=== PATIENT | female | born 1970 | race Two or more races ===

== ENCOUNTER → 2017-02-18 | Outpatient (CLI) | payer BC ==
[~2017-02-18] MED LIST: IOHEXOL 240 MG/ML 50ML VIAL. PO ONE; IOHEXOL 300 MG/ML 100ML VIAL. IV ONE; METF500T4 PO
--- NOTE | 2017-02-18 15:54 | KCIC ---
Indication: Right-sided abdominal pain. Technique: Axial images and coronal and sagittal reformatted images are provided. Oral contrast and 100 mL of intravenous Omnipaque 300 was administered without complication. No comparison is available. One or more of the following individualized dose reduction techniques were utilized for this examination: 1. Automated exposure control 2. Adjustment of the mA and/or kV according to patient size 3. Use of iterative reconstruction technique Findings: There is dependent atelectasis. There is no pleural effusion. The heart is not enlarged. There is mild fatty infiltration of the liver. Gallbladder is absent. Spleen is not enlarged. The pancreas and the right adrenal are unremarkable. Left adrenal adenoma is a centimeter in size. Nonobstructing right renal calculus measures 9 mm. Second calculus on the right measures 3 mm. There is no renal mass. Aorta is normal caliber with atheromatous disease. There is no small bowel obstruction or mural thickening. Normal appendix is noted. There is diverticulosis in the colon without findings of a diverticulitis. There is a small fat-containing umbilical hernia. Bladder is unremarkable. Uterus is presumed surgically absent. There is no adnexal mass. There are degenerative changes in the spine. There is probably canal stenosis that is at least moderate at L4-L5 and mild at L5-S1. There appears to be an old L2 superior endplate compression fracture. IMPRESSION: 1. No acute abdominal findings. 2. Diverticulosis in the colon. 3. Nonobstructing right renal calculi. 4. Mild fatty infiltration of the liver. Electronically signed by: Jhon Salazar MD (02/18/2017 3:50 PM)
== END | disposition home or self-care (01) ==
LOC: KCIC CT 13:13
PROVIDERS: ATTEND Family Medicine
DX: R10.9 Unspecified abdominal pain (principal); I10 Essential (primary) hypertension; Z79.4 Long term (current) use of insulin
CPT/HCPCS: 74178; 82565; Q9966; Q9967

== ENCOUNTER → 2017-03-10 | Outpatient (CLI) | payer BC ==
[~2017-03-10] MED LIST changes: -IOHEXOL 240 MG/ML 50ML VIAL. PO ONE; -IOHEXOL 300 MG/ML 100ML VIAL. IV ONE
--- NOTE | 2017-03-10 12:36 | KCIC ---
EXAM: MRI thoracic spine without contrast. HISTORY: Right thoracic radiculopathy. TECHNIQUE: MRI of the thoracic spine was performed without contrast. COMPARISON: None. FINDINGS: There is a moderate left paracentral protrusion at C6-7. There is a moderate superior plate compression deformity at L2. Degenerative disc disease is moderate to severe at L4-5 and moderate at L5-S1. The alignment of the thoracic spine is normal. There are mild chronic Schmorl's nodes at the superior and inferior endplates of T12. There are no acute fractures. Degenerative disc disease is mild at T7-8. There is no abnormal cord signal. At T7-8, there is a small right paracentral protrusion. It abuts the anterior cord with mild deformity. At T9-10, there is a small left paracentral protrusion with mild narrowing of the left lateral recess. From T9 through T11, there is at least mild facet and ligamentum flavum hypertrophy. This results in mild foraminal narrowing on the left greater than right. IMPRESSION: 1. At T7-8 and T9-10, small paracentral protrusions impinge on the thecal sac slightly. There is mild deformity of the right anterior cord at T7-8. 2. Mild degenerative disc disease at T7-8. 3. Additional degenerative changes in the cervical and lumbar spine as above. There is a chronic moderate compression deformity at L2. *One or more of the following individualized dose reduction techniques were utilized for this examination: 1. Automated exposure control. 2. Adjustment of the mA and/or kV according to patient size. 3. Use of iterative reconstruction technique. Electronically signed by: Huber Elizondo MD (03/10/2017 12:33 PM) [email or web address]
== END | disposition home or self-care (01) ==
LOC: KCIC MRI 10:51
PROVIDERS: ATTEND Physical Medicine & Rehabilitation
DX: M51.14 Intervertebral disc disorders with radiculopathy, thoracic region (principal)
CPT/HCPCS: 72146

== ENCOUNTER → 2017-03-26 | Outpatient (CLI) | payer BC ==
[~2017-03-26] MED LIST changes: +ALPR0.5T PO; +CYCL5TAB PO; +ESTR0.5T PO; +FLUO20CA16 PO; +GABA-585 PO; +IOHEXOL 180 MG/ML 10 ML VIAL. ONE; +LORA5SOL7 PO; +NAPR220C4 PO; +methylPREDNISolone ACETATE 40 MG/ML VIAL. ONE; +methylPREDNISolone ACETATE 80 MG/ML VIAL. ONE
--- NOTE | 2017-03-27 01:47 | PAIN ---
DATE OF SERVICE: INITIAL CONSULTATION FOR PAIN CLINIC CHIEF COMPLAINT: Mid-upper back pain. HISTORY OF PRESENT ILLNESS: This is a 46-year-old female, who presents with a history of pain in the mid-upper back for about 2-3 months, gradually increasing, not a result of any specific injury or action that she is aware of, but it has been getting gradually worse in the middle back with radiation in the right and left thorax and rib cage to the flank into the anterior aspect. The patient reports that it is a tingling and numbness, radiating, stabbing, throbbing, aching, cramping, and wakes her from sleep at least once or twice at night, does not affect her bowel or bladder control, and only hurts when she walks occasionally. The patient reports that she has had some chiropractic treatment, which has helped decrease the pain, but is still significant. The patient had no other therapies at this time. The patient did have an MRI scan of the thoracic spine, showing T7-8 with a small right paracentral protrusion, abutting the anterior cord with mild deformity at T9-10, small left paracentral protrusion with mild narrowing of the left lateral recess. The patient reports her disability, rating from 0 to 10, 10 being the worst. It is a 2 with family and home responsibilities and recreation, 4 with social activity and occupation, 8 with sexual behavior, and 0 with self-care and life support activities. The patient has tried oxycodone, also Aleve and Flexeril - each does help by about 25-30%, but has not relieved the pain completely. The patient ____ shows no loss of motor function or other complaints. She has significant pain with flexing, extending, walking, and standing in the mid-upper back with radiation as noted. PAST MEDICAL HISTORY: Significant for type 2 diabetes - on oral medications, history of arthritis, fatty liver disease, and obesity. PREVIOUS SURGERIES: Include hysterectomy, bladder lift, cholecystectomy, bilateral foot surgery and tympanic ear tubes placed. MEDICATIONS: Include metformin, Xanax, estradiol, Claritin, Prozac, gabapentin, cyclobenzaprine, and Aleve. ALLERGIES: The patient has no known drug allergies. FAMILY HISTORY: Significant for diabetes, lung cancer, and hypertension. SOCIAL HISTORY: The patient does not drink, does not smoke or use other tobacco products. She is , lives with her spouse and lives locally in [place], [place]. REVIEW OF SYSTEMS: The patient's review of systems is positive for those items mentioned in the history of present illness. All systems are reviewed and otherwise negative. It is complete, full, and well-documented on the patient's chart. PHYSICAL EXAMINATION: VITAL SIGNS: The patient's blood pressure is 133/89, pulse 87, respirations 18, temperature 98.3 degrees Fahrenheit, height is 5 feet 6 inches, and weight is 235 pounds. GENERAL: The patient is awake, alert, oriented, and appropriate, very pleasant demeanor. HEENT: Head shows normocephalic, atraumatic. Extraocular movements are intact and symmetrical. Oral cavity, mucous membranes are moist and pink. Dentition is intact. NECK: Shows anterior throat supple without palpable lymphadenopathy noted. Swallow reflex is symmetrical. CHEST: Shows normal on inspection. Breath sounds are clear to auscultation bilaterally. HEART: Shows S1 and S2 clear. ABDOMEN: Shows obese, but soft, nontender, and nondistended. No palpable organomegaly is noted. No rebound or guarding demonstrated. BACK: The patient's back shows spine grossly midline. Slight exaggeration of thoracic kyphosis with mild flattening of lumbar lordotic curvature. With inspection, shows normal symmetrical musculature of the thoracic paraspinous muscles as well as the lumbar paraspinous muscles. With palpation shows significant tenderness in the middle upper distribution of the thoracic spine, not over the spinous processes as much, but the tenderness is diffusely in the paraspinous musculature bilaterally and equal bilaterally with significant pain. No significant radiation noted with palpation. The patient shows good rotational motion of both the thoracic spine, as well as extension and flexion without significant increase in pain as well. EXTREMITIES: Upper extremities showed deep tendon reflexes at 2+ in the biceps and triceps tendons. Motor exam is strong with end user consultant strength rated at 5/5, as is biceps and triceps flexion and equal. Peripheral pulses are 2+ in the radial distribution. No peripheral edema is noted. No clubbing, no cyanosis. Upper extremities are warm and dry to touch, equal in color and appearance. The patient shows full rotational motion of the shoulders without limitation and without exacerbation of pain. IMPRESSION: 1. This is a 46-year-old female with an approximate 2- to 3-month history of increasing pain in the middle upper back as noted. 2. MRI scan of the thoracic spine as documented. 3. Obesity. 4. Arthritis. PLAN: Options were discussed with the patient including conservative medical management, physical therapy, and interventional techniques. She would like to pursue interventional techniques. We discussed a thoracic epidural steroid injection using description as well as anatomical models to describe the procedure. Risks were then discussed including, but not limited to bleeding, infection, possibility of epidural hematoma and subsequent neurologic compromise, dural puncture, headaches, spinal cord and/or nerve damage, side effects of steroid medication, and poor results regarding pain control. The patient understands and wishes to proceed. The patient will return to clinic in approximately 2 weeks for followup, she was counseled on return appointment, activity level, and side effects to be aware of. DIAGNOSES: Thoracic radiculopathy with thoracic degenerative disk disease. PROCEDURES: Thoracic epidural steroid injection via translaminar approach at the T7-8 level using C-arm fluoroscopic guidance under sterile prep and drape using local anesthetic. MEDICATIONS INJECTED: Depo-Medrol 120 mg plus 10 mL of preservative-free normal saline and 2-mL Isovue for contrast. CONDITION AT DISCHARGE: Stable. The patient tolerated the procedure well, had no complications. SAMY HUTCHINSON MD DR: INGRID/lizbeth JOB#: [id number] / [id number]
== END | disposition home or self-care (01) ==
LOC: PNCL 09:31
PROVIDERS: ATTEND Anesthesiology
DX: M51.14 Intervertebral disc disorders with radiculopathy, thoracic region (principal); M19.90 Unspecified osteoarthritis, unspecified site; E66.9 Obesity, unspecified; Z68.42 Body mass index [BMI] 45.0-49.9, adult; E11.9 Type 2 diabetes mellitus without complications; Z90.710 Acquired absence of both cervix and uterus; Z90.49 Acquired absence of other specified parts of digestive tract; Z82.49 Family history of ischemic heart disease and other diseases of the circulatory system; Z80.1 Family history of malignant neoplasm of trachea, bronchus and lung; Z88.6 Allergy status to analgesic agent; Z88.8 Allergy status to other drugs, medicaments and biological substances
CPT/HCPCS: 62321; J1030; J1040

== ENCOUNTER → 2017-08-10 | Outpatient (CLI) | payer BC ==
[~2017-08-10] MED LIST changes: -IOHEXOL 180 MG/ML 10 ML VIAL. ONE; -methylPREDNISolone ACETATE 40 MG/ML VIAL. ONE; -methylPREDNISolone ACETATE 80 MG/ML VIAL. ONE
--- NOTE | 2017-08-11 10:53 | SLEEP ---
DATE OF STUDY: 08/10/2017 ATTENDING PHYSICIAN: Dr. Leonora Velazquez. The patient is 46 years old who weighs 227 pounds with a BMI of 38. The patient's [place] score was 11. A diagnostic sleep study was performed at [facility]. During the night study, the patient spent 424 minutes in bed and slept for 399 minutes with a sleep efficiency of 94%. Sleep latency was 4 minutes with a REM latency of 256 minutes. Overall, sleep architecture showed normal stage I sleep, increased stage II sleep, absent slow wave and normal REM sleep. During the night study, the patient had 3 obstructive apneas, 4 mixed and no central apneas. There were 68 hypopneas. The patient's apnea hypopnea index was 11 per hour, supine index 15 per hour and a REM index of 41 per hour. Review of nocturnal oximetry study revealed a mean oxygen saturation of with the lowest of 82%. 8% of the time oxygen saturation remained between 80% and 89%. EKG monitoring revealed normal sinus rhythm, average heart rate of 78 beats per minute, no sustained arrhythmias were observed. No clinically significant PLM seen. Due to low AHI, the patient did not meet the split night criteria for CPAP initiation. IMPRESSION: 1. Mild sleep apnea-hypopnea syndrome with worsening during REM sleep. Total AHI 11 per hour with a REM AHI of 41 per hour. 2. Mild nocturnal hypoxia secondary to obstructive sleep apnea. 3. No clinically significant PLMs. RECOMMENDATIONS: 1. The patient is clinically symptomatic. I would recommend treating patient's sleep apnea with either oral appliance or a trial of CPAP titration. 2. If patient undergoes CPAP titration, then the patient should be followed up in 4-6 weeks to assess compliance with CPAP and to document clinical improvement. 3. Weight loss is strongly advised. 4. Avoid ASSISTANT MANAGER TRAIN[employer] depressants. 5. Caution regarding driving until patient's hypersomnia is resolved with above recommendations. STEVEN LEONE MD DR: ALLYN/lizbeth JOB#: [id number] / [id number] LEONORA Santoro MD [facility]
== END | disposition home or self-care (01) ==
LOC: SLPLAB 18:35
PROVIDERS: ATTEND Family Medicine
DX: G47.33 Obstructive sleep apnea (adult) (pediatric) (principal); R06.83 Snoring
CPT/HCPCS: 95810

== ENCOUNTER 2017-10-26 04:18 | Inpatient (IN) | payer BC ==
[2017-10-26 06:18] LABS: ADD MAN DIFF? NO
[2017-10-26 06:32] LABS: ANION GAP 13 (6-14); BLOOD UREA NITROGEN 13 mg/dL (7-20); BUN/CREATININE RATIO 19 (6-20); CALCIUM 9.1 mg/dL (8.5-10.1); CARBON DIOXIDE 23 mmol/L (21-32); CHLORIDE 101 mmol/L (98-107); CREATININE 0.7 mg/dL (0.6-1.0); GFR 89.3; GLUCOSE 165 mg/dL (70-99); POTASSIUM 3.5 mmol/L (3.5-5.1); SODIUM 137 mmol/L (136-145)
[2017-10-26] MEDS: IV NORMAL SALINE 1000ML BAG 1,000 ML IV ×8 (06:36→17:47)
[2017-10-26] MEDS: ONDANSETRON PF 4 MG/2 ML VIAL. IV ×2 (06:36)
[2017-10-26 06:37] LABS: ALBUMIN 3.6 g/dL (3.4-5.0); ALBUMIN/GLOBULIN RATIO 0.8 (1.0-1.7); ALK PHOS 70 U/L (46-116); ALT (SGPT) 22 U/L (14-59); AST (SGOT) 18 U/L (15-37); LIPASE 100 U/L (73-393); TOTAL BILIRUBIN 0.4 mg/dL (0.2-1.0); TOTAL PROTEIN 8.4 g/dL (6.4-8.2)
[2017-10-26] MEDS: fentaNYL PF VIAL 100 MCG/2 ML VIAL IV ×22 (06:37→23:15)
[2017-10-26 06:42] LABS: BASO % 1 % (0-3); EOS # 0.1 x10^3/uL (0.0-0.7); EOS % 1 % (0-3); HEMATOCRIT 39.8 % (36.0-47.0); HEMOGLOBIN 12.9 g/dL (12.0-15.5); LYMPH # 1.4 x10^3/uL (1.0-4.8); LYMPH % 17 % (24-48); MEAN CORPUSCULAR HEMOGLOBIN 26 pg (25-35); MEAN CORPUSCULAR HGB CONC 33 g/dL (31-37); MEAN CORPUSCULAR VOLUME 79 fL (79-100); MONO # 0.6 x10^3/uL (0.0-1.1); MONO % 7 % (0-9); NEUT # 6.6 x10^3uL (1.8-7.7); NEUT % 75 % (31-73); PLATELET COUNT 284 x10^3/uL (140-400); RED BLOOD COUNT 5.06 x10^6/uL (3.50-5.40); RED CELL DISTRIBUTION WIDTH 16.2 % (11.5-14.5); WHITE BLOOD COUNT 8.8 x10^3/uL (4.0-11.0)
[2017-10-26 06:56] LABS: BILIRUBIN,URINE NEGATIVE (NEG); CLARITY,URINE CLOUDY; COLOR,URINE AMBER; GLUCOSE,URINE NEGATIVE (NEG); NITRITE,URINE NEGATIVE (NEG); PH,URINE 7.5; PROTEIN,URINE 30 mg/dL (NEG-TRACE); SQUAMOUS EPITHELIAL CELL,UR MOD /LPF; UROBILINOGEN,URINE 0.2 mg/dL (0.2 mg/dL)
[2017-10-26 06:57] LABS: BACTERIA,URINE FEW /HPF (0-FEW); RBC,URINE TNTC /HPF (0-2)
[2017-10-26] MEDS ORDERED: CONTRAST GIVEN MC ×2 (07:30)
[2017-10-26] MEDS ORDERED: IOHEXOL 300 MG/ML 100ML VIAL. IV ×2 (07:30)
[2017-10-26] MEDS ORDERED: ONDANSETRON PF 4 MG/2 ML VIAL. IV ×4 (09:00→11:15)
[2017-10-26] MEDS ORDERED: LIDOCAINE 2% JELLY 6ML IN APPLICATOR. ×4 (10:38)
[2017-10-26] MEDS: IV RINGERS,LACTATED 1000ML 1,000 ML IV ×2 (11:03)
[2017-10-26 11:04] LABS: POC GLUCOSE 114 mg/dL (70-99)
[2017-10-26] MEDS ORDERED: fentaNYL PF VIAL 100 MCG/2 ML VIAL IV ×2 (11:15)
[2017-10-26] MEDS ORDERED: MORPHINE SULFATE 2 MG/ML DISP.SYRIN. IV ×2 (11:15)
[2017-10-26] MEDS ORDERED: LIDOCAINE 1% PF 2 ML VIAL. ID ×2 (11:15)
[2017-10-26] MEDS ORDERED: PROCHLORPERAZINE 10 MG/2 ML VIAL. IV ×2 (11:15)
[2017-10-26] MEDS ORDERED: fentaNYL PF VIAL 100 MCG/2 ML VIAL ×2 (11:26)
[2017-10-26] MEDS ORDERED: MIDAZOLAM HCL/PF 2 MG/2 ML VIAL. ×2 (11:26)
[2017-10-26] MEDS: IOHEXOL 300 MG/ML 100ML VIAL. ×2 (11:41)
[2017-10-26] MEDS ORDERED: ONDANSETRON PF 4 MG/2 ML VIAL. ×2 (11:57)
[2017-10-26] MEDS ORDERED: DEXAMETHASONE SOD PHOS 20 MG/5 ML VIAL. ×2 (11:57)
[2017-10-26] MEDS ORDERED: SEVOFLURANE 61 TO 120 MINUTES. IH ×2 (11:57)
[2017-10-26] MEDS ORDERED: PROPOFOL 20 ML IV ×2 (11:57)
[2017-10-26] MEDS ORDERED: LIDOCAINE 2% PF Vial for OR 5 ML VIAL. ×2 (11:57)
[2017-10-26] MEDS ORDERED: SEVOFLURANE 31 TO 60 MINUTES. IH ×2 (11:57)
[2017-10-26 12:17] LABS: POC GLUCOSE 97 mg/dL (70-99)
[2017-10-26 14:33] LABS: POC GLUCOSE 176 mg/dL (70-99)
[2017-10-26] MEDS: GABAPENTIN 100 MG CAPSULE. PO ×4 (15:00→21:00)
[2017-10-26] MEDS: SPIRONOLACTONE 25 MG TABLET PO ×2 (15:10)
[2017-10-26] MEDS: LISINOPRIL 5 MG TABLET. PO ×2 (15:11)
[2017-10-26] MEDS: FLUoxetine HCL 20 MG CAPSULE PO ×2 (15:11)
[2017-10-26] MEDS: metFORMIN 500 MG TABLET PO ×2 (17:00)
[2017-10-26 17:15] LABS: POC GLUCOSE 187 mg/dL (70-99)
[2017-10-26] MEDS: CIPROFLOXACIN 200MG PREMIX 100 ML IV ×4 (17:48→23:14)
[2017-10-26] MEDS: TEMAZEPAM 15 MG CAPSULE PO ×2 (20:35)
[2017-10-26] MEDS: ALPRAZolam 0.5 MG TABLET PO ×2 (20:35)
[2017-10-26] MEDS: LACTOBACILLUS RHAMNOSUS GG 1 CAPSULE. PO ×2 (21:00)
[2017-10-26 21:09] LABS: BILIRUBIN,URINE NEGATIVE (NEG); CLARITY,URINE CLEAR; COLOR,URINE YELLOW; GLUCOSE,URINE >=1000 mg/dL (NEG); NITRITE,URINE NEGATIVE (NEG); PROTEIN,URINE 30 mg/dL (NEG-TRACE)
[2017-10-26 21:15] LABS: BACTERIA,URINE FEW /HPF (0-FEW); RBC,URINE >40 /HPF (0-2); SQUAMOUS EPITHELIAL CELL,UR FEW /LPF
[2017-10-27] MEDS: FLUoxetine HCL 20 MG CAPSULE PO ×4 (00:24→21:08)
[2017-10-27] MEDS: fentaNYL PF VIAL 100 MCG/2 ML VIAL IV ×10 (01:02→23:27)
[2017-10-27] MEDS: DOCUSATE SODIUM 100 MG CAPSULE. PO ×4 (01:08→10:34)
[2017-10-27] MEDS: oxyCODONE/APAP 7.5/325 1 TAB TABLET PO ×6 (03:14→18:39)
[2017-10-27 03:33] LABS: ADD MAN DIFF? NO
[2017-10-27 03:38] LABS: BASO % 0 % (0-3); EOS % 0 % (0-3); HEMOGLOBIN 11.6 g/dL (12.0-15.5); LYMPH # 1.7 x10^3/uL (1.0-4.8); LYMPH % 15 % (24-48); MEAN CORPUSCULAR HEMOGLOBIN 26 pg (25-35); MEAN CORPUSCULAR HGB CONC 32 g/dL (31-37); MEAN CORPUSCULAR VOLUME 79 fL (79-100); MONO # 0.5 x10^3/uL (0.0-1.1); MONO % 4 % (0-9); NEUT # 9.2 x10^3uL (1.8-7.7); NEUT % 81 % (31-73); PLATELET COUNT 269 x10^3/uL (140-400); RED BLOOD COUNT 4.54 x10^6/uL (3.50-5.40); RED CELL DISTRIBUTION WIDTH 16.3 % (11.5-14.5); WHITE BLOOD COUNT 11.4 x10^3/uL (4.0-11.0)
[2017-10-27 03:58] LABS: ALBUMIN 3.2 g/dL (3.4-5.0); ALBUMIN/GLOBULIN RATIO 0.8 (1.0-1.7); ALK PHOS 62 U/L (46-116); ALT (SGPT) 19 U/L (14-59); ANION GAP 10 (6-14); AST (SGOT) 15 U/L (15-37); BLOOD UREA NITROGEN 10 mg/dL (7-20); BUN/CREATININE RATIO 17 (6-20); CALCIUM 8.6 mg/dL (8.5-10.1); CARBON DIOXIDE 25 mmol/L (21-32); CHLORIDE 102 mmol/L (98-107); CREATININE 0.6 mg/dL (0.6-1.0); GFR 106.7; GLUCOSE 151 mg/dL (70-99); POTASSIUM 4.1 mmol/L (3.5-5.1); SODIUM 137 mmol/L (136-145); TOTAL BILIRUBIN 0.4 mg/dL (0.2-1.0); TOTAL PROTEIN 7.2 g/dL (6.4-8.2)
[2017-10-27 06:32] LABS: POC GLUCOSE 154 mg/dL (70-99)
[2017-10-27 07:49] LABS: POC GLUCOSE 135 mg/dL (70-99)
[2017-10-27] MEDS: metFORMIN 500 MG TABLET PO ×4 (08:00→17:00)
[2017-10-27] MEDS ORDERED: FLUOXETINE HCL PO ×2 (08:00)
[2017-10-27] MEDS ORDERED: ALPRAZolam 0.5 MG TABLET PO ×2 (09:00)
[2017-10-27] MEDS ORDERED: LISINOPRIL 5 MG TABLET. PO ×2 (09:00)
[2017-10-27] MEDS: ALPRAZolam 0.5 MG TABLET PO ×4 (09:29→21:26)
[2017-10-27] MEDS: LACTOBACILLUS RHAMNOSUS GG 1 CAPSULE. PO ×4 (09:29→21:07)
[2017-10-27] MEDS: GABAPENTIN 100 MG CAPSULE. PO ×6 (09:29→21:07)
[2017-10-27] MEDS: SPIRONOLACTONE 25 MG TABLET PO ×2 (09:29)
[2017-10-27] MEDS: CIPROFLOXACIN 200MG PREMIX 100 ML IV ×4 (09:30→21:11)
[2017-10-27] MEDS: IV NORMAL SALINE 1000ML BAG 1,000 ML IV ×2 (09:31)
[2017-10-27] MEDS: PHENAZOPYRIDINE 200 MG TABLET. PO ×2 (10:34)
[2017-10-27 11:02] LABS: POC GLUCOSE 208 mg/dL (70-99)
[2017-10-27] MEDS: KETOROLAC TROMETHAMINE 10 MG TABLET PO ×4 (11:54→21:07)
[2017-10-27 16:37] LABS: POC GLUCOSE 131 mg/dL (70-99)
[2017-10-27] MEDS: TEMAZEPAM 15 MG CAPSULE PO ×2 (21:07)
[2017-10-27 22:14] LABS: POC GLUCOSE 179 mg/dL (70-99)
[2017-10-28] MEDS: oxyCODONE/APAP 7.5/325 1 TAB TABLET PO ×6 (01:30→14:38)
[2017-10-28] MEDS: KETOROLAC TROMETHAMINE 10 MG TABLET PO ×4 (04:52→12:41)
[2017-10-28] MEDS: PHENAZOPYRIDINE 200 MG TABLET. PO ×2 (05:31)
[2017-10-28] MEDS: DOCUSATE SODIUM 100 MG CAPSULE. PO ×2 (05:39)
[2017-10-28] MEDS: ALPRAZolam 0.5 MG TABLET PO ×2 (05:39)
[2017-10-28] MEDS: fentaNYL PF VIAL 100 MCG/2 ML VIAL IV ×4 (05:41→09:30)
[2017-10-28 07:40] LABS: POC GLUCOSE 108 mg/dL (70-99)
[2017-10-28] MEDS: metFORMIN 500 MG TABLET PO ×2 (08:22)
[2017-10-28] MEDS: LACTOBACILLUS RHAMNOSUS GG 1 CAPSULE. PO ×2 (09:21)
[2017-10-28] MEDS: GABAPENTIN 100 MG CAPSULE. PO ×4 (09:21→14:38)
[2017-10-28] MEDS: SPIRONOLACTONE 25 MG TABLET PO ×2 (09:21)
[2017-10-28] MEDS: CIPROFLOXACIN 200MG PREMIX 100 ML IV ×2 (09:22)
[2017-10-28 11:38] LABS: POC GLUCOSE 149 mg/dL (70-99)
[2017-10-28] MEDS ORDERED: metFORMIN 500 MG TABLET PO ×2 (17:00)
== END 2017-10-28 15:30 | disposition home or self-care (01) | DRG 694 ==
LOC: ER 04:18 → 5 SOUTH 08:49
PROC: BT1D1ZZ Fluoroscopy of Right Kidney, Ureter and Bladder using Low Osmolar Contrast (ICD-10-PCS; principal; 2017-10-26 11:25)
PROC: 0T768DZ Dilation of Right Ureter with Intraluminal Device, Via Natural or Artificial Opening Endoscopic (ICD-10-PCS; 2017-10-26 11:25)
PROC: 5A09357 Assistance with Respiratory Ventilation, Less than 24 Consecutive Hours, Continuous Positive Airway Pressure (ICD-10-PCS; 2017-10-26 11:25)
DX: N13.2 Hydronephrosis with renal and ureteral calculous obstruction (principal); E88.81 Metabolic syndrome and other insulin resistance; R65.10 Systemic inflammatory response syndrome (SIRS) of non-infectious origin without acute organ dysfunction; N39.0 Urinary tract infection, site not specified; E66.9 Obesity, unspecified; E11.9 Type 2 diabetes mellitus without complications; E78.5 Hyperlipidemia, unspecified; I10 Essential (primary) hypertension; N83.201 Unspecified ovarian cyst, right side; K57.30 Diverticulosis of large intestine without perforation or abscess without bleeding; F32.9 Major depressive disorder, single episode, unspecified; F41.9 Anxiety disorder, unspecified; Z68.36 Body mass index [BMI] 36.0-36.9, adult; Z82.49 Family history of ischemic heart disease and other diseases of the circulatory system; Z87.442 Personal history of urinary calculi; Z90.49 Acquired absence of other specified parts of digestive tract; Z90.710 Acquired absence of both cervix and uterus; Z88.5 Allergy status to narcotic agent
CPT/HCPCS: 36415; 74018; 74177; 74420; 80053; 81001; 82962; 83690; 85025; 87086; 96361; 96374; 96375; 99285; 99285-25; C1769; C2617; J0690; J0744; J1100; J2250; J2405; J2704; J3010; J7030; J7120; Q9967

== ENCOUNTER → 2018-08-12 | Outpatient (CLI) | payer BC ==
[2017-10-28 14:50] VITALS: BP 124/70
[~2018-08-12] MED LIST changes: +ALPR0.5T6 PO; +BIFI1CAP PO; +FLUO40CA2 PO; +LISI-338 PO; +METF500T16 PO; -METF500T4 PO; +MULT-160 PO; +OXYC1TAB19 PO; +SPIR50TA PO; +SUMA100T4 PO; +TEMA30CA PO
--- NOTE | 2018-08-12 15:14 | RAD ---
MR of the left knee Indication: Left lateral knee pain over the last few years. Pain and swelling. Comparison: None are available. Technique: The standard multiplanar sequences are obtained. FINDINGS: Artifact: Mild motion degradation. Medial meniscus: Mild signal within the posterior horn, likely exaggerated by the motion. No definite surfacing of the signal. Lateral meniscus: Intact. Anterior cruciate ligament: Intact. Posterior cruciate ligament: Intact Medial collateral ligament: Intact. Lateral structures: * Iliotibial band: Intact. * Lateral collateral ligament: Intact. * Biceps femoris tendon: Intact * Popliteus tendon attachment: Intact Extensive mechanism: * Patellar tendon: Intact * Quadriceps tendon: Intact * Retinacular structures: Intact Fluid: Moderate joint effusion. Trace Tolbert's cyst. Intra-articular bodies: 8 mm osteochondral body posterior to the posterior horn of the lateral meniscus. There may be an additional adjacent smaller nodule. There is also a smaller loose body posterior to the posterior horn the medial meniscus. Joint compartments * patellofemoral joint: Primary osteoarthritis, severe chondromalacia at the lateral aspect with subchondral exposure and small cysts. * medial compartment: Minimal degenerative spurring * lateral compartment: Mild degenerative spurring. Bones: No significant lesion or acute fracture. Soft tissue: Unremarkable Impression: 1. Signal within the medial meniscus, likely accentuated by the motion, no definite tear. 2. Primary osteoarthritis. 3. At least one osteochondral loose body posterior to the posterior horn of the lateral meniscus measures 8 mm. There is a smaller loose body posterior to the posterior horn the medial meniscus. Electronically signed by: Zoltan Ashraf MD (08/12/2018 3:10 PM) [email or web address]
--- NOTE | 2018-08-15 13:53 | RAD ---
DATE: August 12, 2018 EXAM: DIGITAL SCREEN BILAT W/CAD HISTORY: Screening study. COMPARISON: 2015 and 2017 This study was interpreted with the benefit of Computerized Aided Detection (CAD). FINDINGS: Breast Density: HETERO The breast parenchyma is heterogenously dense, which could reduce sensitivity of mammography. Breast parenchyma level C.. There are no dominant suspicious masses, suspicious microcalcifications or evidence of architectural distortion. IMPRESSION: No mammographic indicators for malignancy. BI-RADS CATEGORY: 1 NEGATIVE RECOMMENDED FOLLOW-UP: 12M 12 MONTH FOLLOW-UP PQRS compliance statement: Patient information was entered into a reminder system with a target due date August 13, 2019 for the next mammogram. Mammography is a sensitive method for finding small breast cancers, but it does not detect them all and is not a substitute for careful clinical examination. A negative mammogram does not negate a clinically suspicious finding and should not result in delay in biopsying a clinically suspicious abnormality. "Our facility is accredited by the [employer] Mammography Program." The patient's breast density may affect the ability of mammography to detect breast cancer. There are 4 categories of breast density, A, B, C and D. Breast density A means that most of the breast tissue is replaced with adipose tissue and therefore is not dense. Breast density B means that the breast tissue is mildly dense and scattered. Breast density C means that the breast tissue is heterogeneously dense. Breast density D means that the breast tissue is very dense. Breast densities especially C and D may decrease the sensitivity of mammography to detect breast cancer. Therefore, the patient may benefit from 3-D breast mammography (3D breast tomography) as a part of their screening mammogram. Insurance may or may not pay for this additional imaging. The patient's breast density based on today's mammogram is category C.
== END | disposition home or self-care (01) ==
LOC: MAMMO 13:57
PROVIDERS: ATTEND Family Medicine
DX: Z12.31 Encounter for screening mammogram for malignant neoplasm of breast (principal); M17.12 Unilateral primary osteoarthritis, left knee; M23.42 Loose body in knee, left knee; M22.42 Chondromalacia patellae, left knee; M25.462 Effusion, left knee; M25.862 Other specified joint disorders, left knee
CPT/HCPCS: 73721; 77067

== ENCOUNTER → 2019-05-16 | Outpatient (CLI) | payer BC ==
[2017-10-28 14:50] VITALS: BP 124/70
[~2019-05-16] MED LIST changes: +GABA600T7 PO; +IOHEXOL 180 MG/ML 10 ML VIAL. ONE; +methylPREDNISolone ACETATE 40 MG/ML VIAL. ONE; +methylPREDNISolone ACETATE 80 MG/ML VIAL. ONE
--- NOTE | 2019-05-16 10:17 | PAIN ---
DATE OF SERVICE: 05/16/2019 INITIAL CONSULTATION FOR PAIN CLINIC CHIEF COMPLAINT: Low back and left lower extremity pain. HISTORY OF PRESENT ILLNESS: This is a 48-year-old female, who presents with history of pain in the low back and left lower extremity. For about 2 years on and off, she has had multiple exercise therapies, chiropractic treatment and physical therapy; over the last 3 months especially, lumbar pump. Also, doing exercises on her own. The patient is taking gabapentin, hydrocodone and Flexeril, all of which do decrease the pain moderately, but the pain is in the low back, radiating to the posterior gluteus, posterolateral thigh, lateral anterior thigh, anterior medial thigh, medial knee on the left side. The patient reports it is tingling and numbness and radiation changes during the day, worse with activity, constant with weightbearing; burning, cramping, aching and cold as well. The patient reports she jumped out of a bed of a box truck about 2 years ago and feels that it was when this all started. The patient reports it wakes her from sleep at least 2 times or more at night. It does not affect her ability to walk, but does cause it to be more difficult and fatigues easily on the left leg. Has not had any falling or difficulty with control of the left leg, but significant fatigability with ambulation. The patient reports no bowel or bladder incontinence. The patient rates her disability rating from 0-10, 10 being the worst, is a 4 with family home responsibilities, recreation, social activity, 5 with occupation, 10 with sexual behavior, 6 with self-care and 5 with life support activities. The patient did have MRI scan of the lumbar spine showing disk space narrowing at L4-L5 with diffuse disk bulging and bulging annulus with mild bilateral foraminal stenosis. L5-S1 shows a focal disk protrusion centrally with bilateral foraminal stenosis as well. The patient reports no other complaints at this time. PAST MEDICAL HISTORY: Significant for diabetes type 2, hypertension, depression, anxiety, dizziness, headaches. PREVIOUS SURGERIES: Include lap tamar, sling mesh placement, hysterectomy partial, previous and kidney stents. CURRENT MEDICATIONS: Include Xanax, Prozac, cyclobenzaprine, Aleve, gabapentin, metformin, Percocet, multivitamins and Aldactone. ALLERGIES: The patient has no known drug allergies. FAMILY HISTORY: Significant for heart disease, cancers and diabetes. SOCIAL HISTORY: The patient does not drink alcohol, does not smoke, does not use any illegal, illicit or recreational drugs. Is , lives with her spouse. Lives locally in [place], [place]. Has 1 child, living at home. 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 REVIEW OF SYSTEMS: The patient's review of systems is positive for those items as mentioned in history of present illness. All systems reviewed and otherwise negative. It is complete, full and well documented on the patient's chart. PHYSICAL EXAMINATION: VITAL SIGNS: The patient's blood pressure is 135/87, pulse 73, respirations are 18, temperature is 98.4 degrees Fahrenheit, she is 5 foot 6 inches, weight is 236 pounds. GENERAL: The patient is awake, alert, oriented and appropriate. She has very pleasant demeanor. HEENT: Head is normocephalic, atraumatic. Extraocular movements are intact and symmetrical. Oral cavity: Mucous membranes are moist and pink. Dentition is intact. NECK: Shows anterior throat supple without palpable lymphadenopathy noted. Swallow reflex symmetrical. CHEST: Shows normal on inspection. Breath sounds clear to auscultation bilaterally. HEART: Shows S1, S2 clear. No murmurs auscultated. ABDOMEN: Soft, nontender, nondistended. No palpable organomegaly is noted. No rebound or guarding demonstrated. BACK: Shows spine grossly in the midline. Normal-appearing thoracic kyphosis and minor flattening of the lumbar lordotic curvature. Lumbar paraspinous muscle shows symmetrical on inspection. On palpation, she has some moderate tenderness diffusely bilaterally, but only diffusely without specific radiation. EXTREMITIES: The patient's lower extremities show deep tendon reflexes at 2+ in the patellar and 1+ tendo-calcaneus tendons. Motor exam is approximately 4 on a scale of 5 with dorsiflexion, extension, quadriceps and hamstring flexion on the left and 5/5 on the right. Peripheral pulses are 1+ posterior tibia. No peripheral edema is noted bilaterally. The patient's straight leg raise noted to be mildly positive on the left at about 45 degrees, but is decreased with knee flexion; the right side is negative. Gaenslen and Wilber maneuvers are negative bilaterally. The patient is able to stand, stand on her toes without difficulty or loss of balance, walks with a normal-appearing gait, not using any assistive devices to ambulate. SKIN: Shows warm and dry, good turgor. No edema. No sores, rashes or bruising throughout. IMPRESSION: 1. This is a 48-year-old female with approximate 2-year history of increasing pain of low back and left lower extremity in a radicular fashion. 2. MRI scan of lumbar spine as noted. 3. Hypertension. 4. Diabetes. PLAN: Options were discussed with the patient, including conservative medical management, physical therapy and interventional techniques. She would like to pursue interventional techniques. We discussed a lumbar epidural steroid injection using description as well as anatomical models to describe the procedure. Risks were then discussed including but not limited to bleeding, infection, possibility of epidural hematoma, subsequent neurological compromise, dural puncture, headaches, spinal cord and/or nerve damage, side effects of steroid medication and poor results regarding pain control. The patient understands and wished to proceed. The patient will return to the clinic in approximately 2 weeks for followup. She was counseled on return appointment, activity level and side effects to be aware of. DIAGNOSES: Lumbar radiculopathy with lumbar degenerative disk disease and lumbar spinal stenosis. PROCEDURE: Lumbar epidural steroid injection, translaminar approach at L4-L5 level using C-arm fluoroscopic guidance under sterile prep and drape using local anesthetic. MEDICATION INJECTED: A total of 120 mg Depo-Medrol plus 10 mL of preservative-free normal saline and 2 mL of contrast. CONDITION AT DISCHARGE: Stable. The patient tolerated procedure well. Had no complications. The patient had initial cervical spinal fluid spread with contrast. Our initial placement needle was redirected with good epidural only, spread on second attempt. The patient did have mild headache after the procedure, which resolved with time and supine position. SAMY HUTCHINSON MD DR: INGRID/lizbeth JOB#: [id number] / [id number]
== END ==
LOC: PNCL 07:51
PROVIDERS: ATTEND Anesthesiology
DX: M51.16 Intervertebral disc disorders with radiculopathy, lumbar region (principal); M48.061 Spinal stenosis, lumbar region without neurogenic claudication; E11.9 Type 2 diabetes mellitus without complications; I10 Essential (primary) hypertension; F32.9 Major depressive disorder, single episode, unspecified; F41.9 Anxiety disorder, unspecified; Z90.49 Acquired absence of other specified parts of digestive tract; Z90.710 Acquired absence of both cervix and uterus; Z98.890 Other specified postprocedural states; Z79.84 Long term (current) use of oral hypoglycemic drugs
CPT/HCPCS: 62323; J1030; J1040; Q9965

== ENCOUNTER → 2019-06-29 | Outpatient (CLI) | payer BC ==
[2017-10-28 14:50] VITALS: BP 124/70
[~2019-06-29] MED LIST changes: -IOHEXOL 180 MG/ML 10 ML VIAL. ONE; +METF10007 PO; -methylPREDNISolone ACETATE 40 MG/ML VIAL. ONE; -methylPREDNISolone ACETATE 80 MG/ML VIAL. ONE
--- NOTE | 2019-06-29 13:44 | KCIC ---
Right lower extremity venous duplex study 06/29/2019 1:41 PM Clinical History: Pain Technique: Using a combination of real time ultrasound imaging and color-flow and pulse Doppler imaging techniques, including spectral analysis, graded compression and augmentation, duplex evaluation of the deep venous system of the right lower extremity was performed. Multiple images were obtained. Findings: There is no sonographic evidence of deep venous thrombosis involving the visualized deep venous structures of the right lower extremity Impression: No evidence of deep venous thrombosis involving the right lower extremity Electronically signed by: Seymour Escobar MD (06/29/2019 1:41 PM) [id number]
== END | disposition home or self-care (01) ==
LOC: KCIC US 13:02
PROVIDERS: ATTEND Nurse Practitioner Family
DX: M79.661 Pain in right lower leg (principal)
CPT/HCPCS: 93971

== ENCOUNTER → 2019-06-29 | Outpatient (CLI) | payer BC ==
[2017-10-28 14:50] VITALS: BP 124/70
[~2019-06-29] MED LIST changes: +IOHEXOL 180 MG/ML 10 ML VIAL. ONE; +methylPREDNISolone ACETATE 40 MG/ML VIAL. ONE; +methylPREDNISolone ACETATE 80 MG/ML VIAL. ONE
--- NOTE | 2019-06-29 09:12 | PAIN ---
DATE OF SERVICE: 06/29/2019 PROGRESS NOTE FOR PAIN CLINIC DIAGNOSES: Lumbar radiculopathy with lumbar degenerative disk disease and lumbar spinal stenosis. HISTORY OF PRESENT ILLNESS: The patient, a 48-year-old female, returns for followup status post lumbar epidural steroid injection x 1. The patient reports about 45% improvement in the low back and left lower extremity pain. The patient reports some pain in the right calf, however, recently. Other than that, she had a bruise there, but is not sure if she hit it on anything, that has been getting better over the past 2 weeks or so. The patient reports her pain in her back and her left leg, is still persistent in the posterior gluteus, posterior thigh, lateral thigh, anterior thigh, medial thigh, and posterior calf on the left as well. The patient describes aching type, tingling, burning, cramping, radiating, becoming more constant, on and off in intensity, 6 on a scale of 10 at its worst over the past week, 5 on average, 5 at its least and is a 5 today. The patient reports sleeping well at night, does not awaken her from sleep, better with sitting or lying down, worse with standing, walking, changing positions. The patient reports no new motor or sensory deficits, no bowel or bladder incontinence or other complaints. The patient did have a spinal headache after her last injection, but that resolved after about 10 days and she reports she has been feeling fine since then. PHYSICAL EXAMINATION: VITAL SIGNS: The patient's blood pressure 131/87, pulse 80, respirations 16, temperature is 98.1 degrees Fahrenheit, weight is 231 pounds. GENERAL: The patient is awake, alert, oriented, appropriate, very pleasant demeanor. HEENT: Shows normocephalic, atraumatic. Extraocular movements are intact and symmetrical. Oral cavity: Mucous membranes moist and pink. Dentition is intact. NECK: Shows anterior throat supple without palpable lymphadenopathy noted. Swallow reflex symmetrical. CHEST: Shows normal on inspection. Normal breath sounds clear to auscultation bilaterally. HEART: Shows S1, S2 clear. ABDOMEN: Soft, nontender, nondistended. No palpable organomegaly is noted. No rebound or guarding demonstrated. BACK: Shows spine grossly in the midline. Normal-appearing thoracic kyphosis and minor flattening of lumbar lordotic curvature. Lumbar paraspinous muscle shows symmetrical on inspection, with palpation shows some moderate tenderness in the low lumbar distribution, but only diffusely bilaterally. EXTREMITIES: Lower extremities show deep tendon reflexes 2+ in the patellar, 1+ in tendo-calcaneus tendons. Motor exam is 5/5 on the right and 4/5 on the left with dorsiflexion, extension, quadriceps, and hamstring flexion. The patient does have some mild tenderness with palpation over the right calf with negative Homans sign; however, peripheral pulses are 2+ posterior tibial bilaterally. No peripheral edema is noted. Options were discussed with the patient. The patient's old chart was reviewed as her current medication regimen updated. Current review of systems updated today as well. We will proceed with a second in a series of lumbar epidural steroid injection today with fluoroscopic guidance. Risks were again discussed, including but not limited to bleeding, infection, possibility of epidural hematoma and subsequent neurologic compromise, dural puncture, headaches, spinal cord and/or nerve damage, side effects of steroid medication and poor results regarding pain control. The patient understands and wished to proceed. The patient will return to the clinic in approximately 2 weeks for followup. She was counseled on return appointment, activity level and side effects to be aware of. DIAGNOSES: Lumbar radiculopathy with lumbar degenerative disk disease and lumbar spinal stenosis. PROCEDURE: Lumbar epidural steroid injection, translaminar approach, L5-S1 level using C-arm fluoroscopic guidance under sterile prep and drape using local anesthetic. MEDICATION INJECTED: A total of 120 mg Depo-Medrol plus 10 mL of preservative-free normal saline and 2 mL of contrast. CONDITION AT DISCHARGE: Stable. The patient tolerated the procedure well, had no complications. SAMY HUTCHINSON MD DR: INGRID/lizbeth JOB#: [id number] / [id number]
== END ==
LOC: PNCL 07:26
PROVIDERS: ATTEND Anesthesiology
DX: M51.16 Intervertebral disc disorders with radiculopathy, lumbar region (principal); M48.061 Spinal stenosis, lumbar region without neurogenic claudication
CPT/HCPCS: 62323; J1030; J1040; Q9965

== ENCOUNTER → 2019-08-17 | Outpatient (CLI) | payer BC ==
[2017-10-28 14:50] VITALS: BP 124/70
--- NOTE | 2019-08-17 10:27 | PAIN ---
DATE OF SERVICE: 08/17/2019 DIAGNOSES: Lumbar radiculopathy with lumbar degenerative disk disease and lumbar spinal stenosis. HISTORY OF PRESENT ILLNESS: The patient is a 48-year-old female who returns for followup status post lumbar epidural steroid injections x 2, most recently seen on 06/29/2019. The patient did very well with about 75% improvement for the first 5 weeks. The patient reports the pain is returning now over the last week or 2, which has increased in the low back and left lower extremity; however, her leg is doing much better. She complains of pain in the low back and left side, worse with walking, standing, changing positions. Initially, she was doing much better with distance walking, doing work activities, household activities, sleeping better. Still not awakening her from sleep at night, but ____ back fairly frequently. The patient reports over the past week, her pain has been a 4 on a scale of 10 at its worst, 3 on average, 3 at its least and is a 3 today. The patient reports it is aching, tingling, burning, cramping, sometimes constant. No new motor or sensory deficits, no new bowel or bladder incontinence. PHYSICAL EXAMINATION: VITAL SIGNS: The patient's blood pressure 139/94, pulse 88, respirations 16, temperature 98.2 degrees Fahrenheit, weight is 234 pounds. GENERAL: The patient is awake, alert, oriented, appropriate, very pleasant demeanor. HEENT: Shows normocephalic, atraumatic. Extraocular movements are intact and symmetrical. Oral cavity: Mucous membranes moist and pink. Dentition is intact. NECK: Shows anterior throat supple without palpable lymphadenopathy noted. Swallow reflex symmetrical. CHEST: Shows normal on inspection. Breath sounds clear to auscultation bilaterally. HEART: Shows S1, S2 clear. No murmurs auscultated. ABDOMEN: Soft, obese, nontender, nondistended. No palpable organomegaly is noted. No rebound or guarding demonstrated. BACK: Shows spine grossly in the midline. Normal appearing thoracic kyphosis and some minor flattening of lumbar lordotic curvature. Lumbar paraspinous muscle shows symmetrical on inspection; on palpation, shows some moderate tenderness diffusely, but only diffusely without significant radiation. The patient has full rotational motion of lumbar spine, both laterally as well as extension and flexion without difficulty. EXTREMITIES: Lower extremities show deep tendon reflexes 2+ in the patellar, 1+ tendo-calcaneus tendons. Motor exam is strong with 5/5 dorsiflexion, extension on the right and 4/5 on the left. Peripheral pulses are 1+ posterior tibia. No peripheral edema is noted bilaterally. Options were discussed with the patient. The patient's old chart was reviewed as her current medication regimen updated. Current review of systems updated today as well. We will proceed with third in the series of lumbar epidural steroid injection today with fluoroscopic guidance. Risks were again discussed including, but not limited to bleeding, infection, possibility of epidural hematoma, subsequent neurological compromise, dural puncture, headaches, spinal cord and/or nerve damage, side effects of steroid medication and poor results regarding pain control. The patient understands and wished to proceed. The patient will return to clinic in approximately 2 weeks for followup. She was counseled on return appointment, activity level and side effects to be aware of. DIAGNOSES: Lumbar radiculopathy with lumbar degenerative disk disease, lumbar spinal stenosis. PROCEDURE: Lumbar epidural steroid injection, translaminar approach at L5-S1 level using C-arm fluoroscopic guidance under sterile prep and drape using local anesthetic. MEDICATION INJECTED: A total of 120 mg Depo-Medrol plus 10 mL of preservative-free normal saline and 2 mL of contrast. CONDITION AT DISCHARGE: Stable. The patient tolerated the procedure well, had no complications. SAMY HUTCHINSON MD DR: INGRID/lizbeth JOB#: [id number] / [id number]
== END ==
LOC: PNCL 07:52
PROVIDERS: ATTEND Anesthesiology
DX: M51.16 Intervertebral disc disorders with radiculopathy, lumbar region (principal); M48.061 Spinal stenosis, lumbar region without neurogenic claudication
CPT/HCPCS: 62323; J1030; J1040; Q9965

== ENCOUNTER → 2020-01-11 | Outpatient (CLI) | payer BC ==
[2017-10-28 14:50] VITALS: BP 124/70
[~2020-01-11] MED LIST changes: +DICL75TA PO
--- NOTE | 2020-01-11 10:26 | PAIN ---
DATE OF SERVICE: 01/11/2020 PROGRESS NOTE FOR PAIN CLINIC DIAGNOSIS: Lumbar radiculopathy with lumbar degenerative disk disease and lumbar spinal stenosis. HISTORY OF PRESENT ILLNESS: The patient is a 49-year-old female who returns for followup status post lumbar epidural steroid injections x 3, most recently seen in 08/2019. The patient did very well with about 75% improvement overall. The patient reports still about a 45% improvement today with the pain in the low back and left lower extremity returning, more noticeable with walking and standing. The patient reports initially she was doing great with walking, doing work activities, household activities, traveling with greater ease and comfort. The patient reports it is beginning to awaken her from sleep again, but only about every 6 hours and when she is on her left side. The patient reports her pain now is a 6 on a scale of 10 at its worst, 4 on average, 2 at its least and is a 2 today. The patient reports it is dull and tight, shooting across the low back into the posterior gluteus on the left, posterior calf and thigh occasionally, but mostly in the back and left hip. The patient reports it is a tingling radiating pain and is becoming more constant, on and off in intensity, however, with ambulation, PHYSICAL EXAMINATION: VITAL SIGNS: The patient's blood pressure is 154/67, pulse 76, respirations 18, temperature is 98.2 degrees Fahrenheit. Height is 5 feet 6 inches. Weight is 232 pounds. GENERAL: The patient is awake, alert, oriented, appropriate, very pleasant demeanor. HEENT: Shows normocephalic, atraumatic. Extraocular movements are intact and symmetrical. Oral cavity shows mucous membranes moist and pink. Dentition is intact. NECK: Shows anterior throat supple without palpable lymphadenopathy noted. Swallow reflex symmetrical. CHEST: Shows normal on inspection. Breath sounds are clear bilaterally. HEART: Shows S1 and S2 clear. ABDOMEN: Obese, soft, nontender, nondistended. BACK: Shows spine grossly in the midline, normal appearing thoracic kyphosis and lumbar lordotic curvature. Lumbar paraspinous muscle shows symmetrical on inspection, on palpation shows some moderate tenderness diffusely throughout the upper, middle and lower distributions of paraspinous muscles, but without radiation and without trigger points. No tenderness over the spinous processes, sacrum or sacroiliac regions. The patient has good rotational motion of lumbar spine, both laterally as well as extension and flexion without significant pain reported. EXTREMITIES: Lower extremities showed deep tendon reflexes 2+ in the patellar, 1+ tendo-calcaneus tendons. Motor exam is strong with 5/5 dorsiflexion, extension, quadriceps and hamstring flexion. Peripheral pulses are 1+ to posterior tibia. No peripheral edema bilaterally. Options were discussed with the patient. The patient's old chart was reviewed as her current medication regimen updated. Current review of systems updated today as well. We will proceed with a lumbar epidural steroid injection today with fluoroscopic guidance with the first in this series. Risks were again discussed including, but not limited to bleeding, infection, possibility of epidural hematoma, subsequent neurological compromise, dural puncture, headaches, spinal cord and/or nerve damage, side effects of steroid medication and poor results regarding pain control. The patient understands and wished to proceed. The patient will return to clinic in approximately 2 weeks for followup. She was counseled on return appointment, activity level and side effects to be aware of. DIAGNOSIS: Lumbar radiculopathy with lumbar degenerative disk disease and lumbar spinal stenosis. PROCEDURE: Lumbar epidural steroid injection, translaminar approach at the L5-S1 level using C-arm fluoroscopic guidance under sterile prep and drape using local anesthetic. MEDICATIONS INJECTED: A total of 120 mg Depo-Medrol plus 10 mL preservative-free normal saline and 2 mL of contrast. CONDITION AT DISCHARGE: Stable. The patient tolerated procedure well and had no complications. SAMY HUTCHINSON MD DR: INGRID/lizbeth JOB#: [id number] / [id number]
== END ==
LOC: PNCL 09:24
PROVIDERS: ATTEND Anesthesiology
DX: M51.16 Intervertebral disc disorders with radiculopathy, lumbar region (principal); M48.061 Spinal stenosis, lumbar region without neurogenic claudication
CPT/HCPCS: 62323; J1030; J1040; Q9965

== ENCOUNTER 2020-06-17 19:27 | Observation (INO) | payer BC ==
[~2020-06-17] VITALS: Ht 167.6 cm; Wt 101.7 kg
[~2020-06-17 19:27] MED LIST changes: -IOHEXOL 180 MG/ML 10 ML VIAL. ONE; -methylPREDNISolone ACETATE 40 MG/ML VIAL. ONE; -methylPREDNISolone ACETATE 80 MG/ML VIAL. ONE
[2020-06-17] MEDS ORDERED: ASPIRIN CHEWABLE 81 MG TABLET. PO ONE (19:45)
[2020-06-17 19:49] LABS: BASO # 0.1 x10^3/uL (0.0-0.2); BASO % 1 % (0-3); EOS # 0.5 x10^3/uL (0.0-0.7); EOS % 7 % (0-3); HEMATOCRIT 36.9 % (36.0-47.0); HEMOGLOBIN 12.1 g/dL (12.0-15.5); LYMPH # 3.3 x10^3/uL (1.0-4.8); LYMPH % 48 % (24-48); MEAN CORPUSCULAR HEMOGLOBIN 26 pg (25-35); MEAN CORPUSCULAR HGB CONC 33 g/dL (31-37); MEAN CORPUSCULAR VOLUME 78 fL (79-100); MONO # 0.6 x10^3/uL (0.0-1.1); MONO % 8 % (0-9); NEUT # 2.4 x10^3/uL (1.8-7.7); NEUT % 35 % (31-73); PLATELET COUNT 295 x10^3/uL (140-400); RED BLOOD COUNT 4.76 x10^6/uL (3.50-5.40); RED CELL DISTRIBUTION WIDTH 14.6 % (11.5-14.5); WHITE BLOOD COUNT 6.9 x10^3/uL (4.0-11.0)
[2020-06-17 19:59] LABS: PROTHROMBIN TIME PATIENT 12.8 SEC (11.7-14.0)
[2020-06-17 20:21] LABS: CALCIUM 9.1 mg/dL (8.5-10.1); CREATININE 0.7 mg/dL (0.6-1.0); GFR 88.6; POTASSIUM 3.6 mmol/L (3.5-5.1)
[2020-06-17 20:26] LABS: ALBUMIN 3.7 g/dL (3.4-5.0); ALBUMIN/GLOBULIN RATIO 1.1 (1.0-1.7); MAGNESIUM 1.9 mg/dL (1.8-2.4); TOTAL BILIRUBIN 0.3 mg/dL (0.2-1.0); TOTAL PROTEIN 7.1 g/dL (6.4-8.2)
--- NOTE | 2020-06-17 20:29 | RAD ---
PORTABLE CHEST 1V History: Reason: chest pain on inspiration / Spl. Instructions: / History: Comparison: None. Findings: No consolidation or pleural effusion. Normal heart size. No pneumothorax. Impression: 1. No acute cardiopulmonary process. Electronically signed by: Boby Manning DO (06/17/2020 8:25 PM) [facility]
[2020-06-17 20:42] LABS: BILIRUBIN,URINE NEGATIVE (NEG); CLARITY,URINE CLEAR; COLOR,URINE YELLOW; NITRITE,URINE NEGATIVE (NEG); PH,URINE 5.5 (<5.0-8.0); PROTEIN,URINE NEGATIVE (NEG-TRACE); UROBILINOGEN,URINE 0.2 mg/dL (0.2 mg/dL)
[2020-06-17] MEDS ORDERED: IOHEXOL 350 MG/ML 100 ML VIAL. IV ONE (20:45)
[2020-06-17] MEDS ORDERED: CONTRAST GIVEN. MC PRN (20:45)
[2020-06-17 20:49] LABS: BACTERIA,URINE FEW /HPF (0-FEW); RBC,URINE 0 /HPF (0-2)
--- NOTE | 2020-06-17 21:16 | RAD ---
CT ANGIOGRAPHY CHEST History: Chest pain. Shortness of breath. Technique: CT of the chest was performed with intravenous contrast. PE protocol. Maximum intensity projection coronal and sagittal reconstructions were performed. Exposure: One or more of the following individualized dose reduction techniques were utilized for this examination: 1. Automated exposure control 2. Adjustment of the mA and/or kV according to patient size 3. Use of iterative reconstruction technique. Comparison: None Findings: Chest: No consolidation or pleural effusion. Normal heart size. No pulmonary embolism. No pneumothorax. No pathologic lymphadenopathy. 3 mm right middle lobe pulmonary nodule (series 3 image 62). 3 mm left lower lobe pulmonary nodule (image 82). Upper abdomen: Prior cholecystectomy. Left adrenal nodule measures 1.2 x 1.0 cm. Bones: No pathologic osseous lesions. Impression: 1. No acute intrathoracic pathology. No pulmonary embolism. 2. Small pulmonary nodules. Recommend one-year follow-up if high risk. Electronically signed by: Boby Manning DO (06/17/2020 9:13 PM) [facility]
--- NOTE | 2020-06-17 21:21 | PHYS DOC ---
Past Medical History Past Medical History: Anxiety, Depression, Diabetes-Type II, Hypertension Past Surgical History: Cholecystectomy, , Hysterectomy Smoking Status: Former Smoker Alcohol Use: None Drug Use: None General Adult EDM: Chief Complaint: CHEST PAIN-CARDIAC NATURE HPI: HPI: Patient is a 49 year old female who presented to ER today for evaluation of chest pain, upper back pain, left arm pain started several hours ago. Patient has history of diabetic and hypertension. She denies a history of coronary disease. Patient denies any cough or fever. Patient denies being exposed to anybody who had COVID-19 recently. Review of Systems: Review of Systems: Constitutional: Denies fever or chills. [] Eyes: Denies change in visual acuity. [] HENT: Denies nasal congestion or sore throat. [] Respiratory: Denies cough , POSITIVE FOR shortness of breath. [] Cardiovascular: Positive chest pain, no edema GI: Denies abdominal pain, nausea, vomiting, bloody stools or diarrhea. [] : Denies dysuria. [] Musculoskeletal: POSITIVE FOR UPPER BACK PAIN AND LEFT ARM PAIN Integument: Denies rash. [] Neurologic: Denies headache, focal weakness or sensory changes. [] Endocrine: Denies polyuria or polydipsia. [] Lymphatic: Denies swollen glands. [] Psychiatric: Denies depression or anxiety. [] Heart Score: HEART Score for Chest Pain: HEART Score for Chest Pain Response (Comments) Value History Moderately Suspicious 1 ECG Normal 0 Age >45 - < 65 1 Risk Factors >3 Risk Factors or Hx CAD 2 Troponin < Normal Limit 0 Total 4 Risk Factors: Risk Factors: DM, Current or recent (<one month) smoker, HTN, HLP, family history of CAD, obesity. Risk Scores: Score 0 - 3: 2.5% MACE over next 6 weeks - Discharge Home Score 4 - 6: 20.3% MACE over next 6 weeks - Admit for Clinical Observation Score 7 - 10: 72.7% MACE over next 6 weeks - Early Invasive Strategies Current Medications: Current Medications Medications (Trade) Dose Ordered Sig/Axel Start Time Stop Time Status Last Admin Dose Admin Aspirin (Aspirin Chewable) 324 mg 1X ONCE 06/17/20 19:45 06/17/20 19:46 DC 06/17/20 19:49 324 MG Info (CONTRAST GIVEN -- Rx MONITORING) 1 each PRN DAILY PRN 06/17/20 20:45 06/19/20 20:44 Iohexol (Omnipaque 350 Mg/ml) 100 ml 1X ONCE 06/17/20 20:45 06/17/20 20:46 DC 06/17/20 20:51 100 ML Allergies: Allergies: Allergies Coded Allergies Type Severity Reaction Last Updated Verified codeine Allergy Intermediate Unknown 01/10/20 Yes hydrocodone Allergy Intermediate Unknown 01/10/20 Yes Physical Exam: PE: Constitutional: Well developed, well nourished, no acute distress, non-toxic appearance. [] HENT: Normocephalic, atraumatic, bilateral external ears normal, oropharynx moist, no oral exudates, nose normal. [] Eyes: PERRLA, EOMI, conjunctiva normal, no discharge. [] Neck: Normal range of motion, no tenderness, supple, no stridor. [] Cardiovascular:Heart rate regular rhythm, no murmur [] Lungs & Thorax: Bilateral breath sounds clear to auscultation [] Abdomen: Bowel sounds normal, soft, no tenderness, no masses, no pulsatile masses. [] Skin: Warm, dry, no erythema, no rash. [] Back: No tenderness, no CVA tenderness. [] Extremities: No tenderness, no cyanosis, no clubbing, ROM intact, no edema. [] Neurologic: Alert and oriented X 3, normal motor function, normal sensory function, no focal deficits noted. [] Psychologic: Affect normal, judgement normal, mood normal. [] Current Patient Data: Labs: Laboratory Tests Test 06/17/20 19:35 06/17/20 20:05 06/17/20 20:30 White Blood Count 6.9 x10^3/uL (4.0-11.0) Red Blood Count 4.76 x10^6/uL (3.50-5.40) Hemoglobin 12.1 g/dL (12.0-15.5) Hematocrit 36.9 % (36.0-47.0) Mean Corpuscular Volume 78 fL (79-100) L Mean Corpuscular Hemoglobin 26 pg (25-35) Mean Corpuscular Hemoglobin Concent 33 g/dL (31-37) Red Cell Distribution Width 14.6 % (11.5-14.5) H Platelet Count 295 x10^3/uL (140-400) Neutrophils (%) (Auto) 35 % (31-73) Lymphocytes (%) (Auto) 48 % (24-48) Monocytes (%) (Auto) 8 % (0-9) Eosinophils (%) (Auto) 7 % (0-3) H Basophils (%) (Auto) 1 % (0-3) Neutrophils # (Auto) 2.4 x10^3/uL (1.8-7.7) Lymphocytes # (Auto) 3.3 x10^3/uL (1.0-4.8) Monocytes # (Auto) 0.6 x10^3/uL (0.0-1.1) Eosinophils # (Auto) 0.5 x10^3/uL (0.0-0.7) Basophils # (Auto) 0.1 x10^3/uL (0.0-0.2) Prothrombin Time 12.8 SEC (11.7-14.0) Prothrombin Time INR 1.0 (0.8-1.1) Activated Partial Thromboplast Time 25 SEC (24-38) Sodium Level 140 mmol/L (136-145) Potassium Level 3.6 mmol/L (3.5-5.1) Chloride Level 104 mmol/L (98-107) Carbon Dioxide Level 24 mmol/L (21-32) Anion Gap 12 (6-14) Blood Urea Nitrogen 14 mg/dL (7-20) Creatinine 0.7 mg/dL (0.6-1.0) Estimated GFR (Cockcroft-Gault) 88.6 BUN/Creatinine Ratio 20 (6-20) Glucose Level 202 mg/dL (70-99) H Calcium Level 9.1 mg/dL (8.5-10.1) Magnesium Level 1.9 mg/dL (1.8-2.4) Total Bilirubin 0.3 mg/dL (0.2-1.0) Aspartate Amino Transferase (AST) 23 U/L (15-37) Alanine Aminotransferase (ALT) 42 U/L (14-59) Alkaline Phosphatase 80 U/L (46-116) Troponin I Quantitative < 0.017 ng/mL (0.000-0.055) NY-Naf-O-Type Natriuretic Peptide 202 pg/mL (0-124) H Total Protein 7.1 g/dL (6.4-8.2) Albumin 3.7 g/dL (3.4-5.0) Albumin/Globulin Ratio 1.1 (1.0-1.7) Lipase 91 U/L (73-393) Urine Collection Type Unknown Urine Color Yellow Urine Clarity Clear Urine pH 5.5 (<5.0-8.0) Urine Specific [place] <=1.005 (1.000-1.030) Urine Protein Negative mg/dL (NEG-TRACE) Urine Glucose (UA) Negative mg/dL (NEG) Urine Ketones (Stick) Negative mg/dL (NEG) Urine Blood Negative (NEG) Urine Nitrite Negative (NEG) Urine Bilirubin Negative (NEG) Urine Urobilinogen Dipstick 0.2 mg/dL (0.2 mg/dL) Urine Leukocyte Esterase Trace (NEG) Urine RBC 0 /HPF (0-2) Urine WBC 1-4 /HPF (0-4) Urine Squamous Epithelial Cells Few /LPF Urine Bacteria Few /HPF (0-FEW) Urine Mucus Slight /LPF Laboratory Tests 06/17/20 19:35 Laboratory Tests 06/17/20 20:05 Vital Signs: Vital Signs Date Time Temp Pulse Resp B/P (MAP) Pulse Ox O2 Delivery O2 Flow Rate FiO2 06/17/20 20:11 62 149/82 (104) 97 Room Air 06/17/20 19:30 98.7 20 98.7 EKG: EKG: EKG was done at 1905, heart rate of 68 bpm, normal sinus rhythm, no ST segment elevation. Radiology/Procedures: Radiology/Procedures: [][facility] [address] [place] [address] IMAGING REPORT Signed PATIENT: LORRIE BUNN MACCOUNT: [id number] : 1970 LOCATION: ER AGE: 49 SEX: F EXAM STATUS: REG ER ORD. PHYSICIAN: CAROLINE AVALOS DO REASON: CHEST PAIN, SOA PROCEDURE: CT ANGIOGRAPHY CHEST CT ANGIOGRAPHY CHEST History: Chest pain. Shortness of breath. Technique: CT of the chest was performed with intravenous contrast. PE protocol. Maximum intensity projection coronal and sagittal reconstructions were performed. Exposure: One or more of the following individualized dose reduction techniques were utilized for this examination: 1. Automated exposure control 2. Adjustment of the mA and/or kV according to patient size 3. Use of iterative reconstruction technique. Comparison: None Findings: Chest: No consolidation or pleural effusion. Normal heart size. No pulmonary embolism. No pneumothorax. No pathologic lymphadenopathy. 3 mm right middle lobe pulmonary nodule (series 3 image 62). 3 mm left lower lobe pulmonary nodule (image 82). Upper abdomen: Prior cholecystectomy. Left adrenal nodule measures 1.2 x 1.0 cm. Bones: No pathologic osseous lesions. Impression: 1. No acute intrathoracic pathology. No pulmonary embolism. 2. Small pulmonary nodules. Recommend one-year follow-up if high risk. Electronically signed by: Boby Manning DO (06/17/2020 9:13 PM) IRISKINJAL DICTATED and SIGNED BY: BOBY MANNING DO DATE: 06/17/202112 [facility] [address] [place], [place] [id number] IMAGING REPORT Signed PATIENT: LORRIE BUNN MACCOUNT: [id number] : 1970 LOCATION: ER AGE: 49 SEX: F EXAM STATUS: REG ER ORD. PHYSICIAN: CAROLINE AVALOS DO REASON: chest pain on inspiration PROCEDURE: PORTABLE CHEST 1V PORTABLE CHEST 1V History: Reason: chest pain on inspiration / Spl. Instructions: / History: Comparison: None. Findings: No consolidation or pleural effusion. Normal heart size. No pneumothorax. Impression: 1. No acute cardiopulmonary process. Electronically signed by: Boby Manning DO (06/17/2020 8:25 PM) IRISKINJAL DICTATED and SIGNED BY: BOBY MANNING DO DATE: 06/17/202024 Course & Med Decision Making: Course & Med Decision Making Pertinent Labs and Imaging studies reviewed. (See chart for details) Patient is a 49-year-old female with history of hypertension diabetic obese, presented to ER with chest pain, lab work EKG CTs of her chest did not show acute problem. Due to her risk factors, patient will be admitted to hospital for further evaluation and treatment. Dragtahir Disclaimer: Dragtahir Disclaimer: This electronic medical record was generated, in whole or in part, using a voice recognition dictation system. Departure Departure Impression: Primary Impression: Chest pain Disposition: 09 ADMITTED INPT THIS HOSP Admitting Physician: JUDSON (Dr. Patel Frias) Condition: STABLE Referrals: LEONORA DHILLON MD (PCP) CAROLINE AVALOS DO Jun 17, 2020 21:21
[2020-06-17] MEDS ORDERED: ONDANSETRON PF 4 MG/2 ML VIAL. IVP PRN (22:15)
[2020-06-17] MEDS ORDERED: ACETAMINOPHEN 325 MG TABLET. PO PRN (22:15)
[2020-06-17] MEDS ORDERED: fentaNYL PF VIAL 100 MCG/2 ML VIAL IVP PRN (22:15)
[2020-06-17] MEDS ORDERED: MAGNESIUM HYDROXIDE 2,400 MG/30 ML ORAL.SUSP. PO PRN (22:15)
[2020-06-17] MEDS ORDERED: ZOLPIDEM 5 MG TABLET. PO PRN (22:15)
[2020-06-17] MEDS ORDERED: MAG HYDROX/ALUMINUM HYD/SIMETH 30 ML ORAL.SUSP PO PRN (22:15)
[2020-06-17] MEDS ORDERED: BISACODYL 10 MG SUPP.RECT. PR PRN (22:15)
[2020-06-17] MEDS ORDERED: IBUPROFEN 400 MG TABLET. PO PRN (22:15)
[2020-06-17] MEDS ORDERED: CALCIUM CARBONATE 500 MG TAB.CHEW PO PRN (22:15)
[2020-06-17] MEDS ORDERED: MORPHINE SULFATE 2 MG/ML VIAL. IV PRN (22:15)
[2020-06-17] MEDS ORDERED: ACETAMINOPHEN 500 MG TABLET PO ONE (22:30)
[2020-06-17] MEDS ORDERED: KETOROLAC 15 MG/ML VIAL. IVP ONE (23:00)
[2020-06-17] MEDS ORDERED: ENOXAPARIN 40 MG/0.4 ML SYRINGE. SQ SCH (23:00)
[2020-06-18 01:34] VITALS: BP 144/77
[2020-06-18] MEDS: MORPHINE SULFATE 2 MG/ML VIAL. IV PRN ×3 (01:34→06:21)
[2020-06-18] MEDS ORDERED: TIZA4TAB2 PO (02:15)
[2020-06-18] MEDS ORDERED: HYDR-2761 PO (02:15)
[2020-06-18] MEDS ORDERED: TEMA30CA PO (02:15)
[2020-06-18] MEDS ORDERED: SUMA100T3 PO (02:15)
[2020-06-18] MEDS ORDERED: CINN500C2 PO (02:15)
[2020-06-18] MEDS ORDERED: FLUO40CA2 PO (02:15)
[2020-06-18] MEDS ORDERED: IBUP-577 PO (02:15)
[2020-06-18] MEDS: tiZANidine 4 MG TABLET. PO SCH ×2 (03:14→12:11)
[2020-06-18 03:41] VITALS: BP 121/66
--- NOTE | 2020-06-18 06:12 | EKG ---
[facility] [address] [place] [address] Test Date: 2020-06-17 Test Time: 19:35:16 Pat Name: LORRIE BUNN Department: Room: Gender: F Pmp: : 1970 Requested By: CAROLINE AVALOS Order Number: [id number] Reading MD: Measurements Intervals Stow Rate: 68 P: 0 NE: 174 QRS: 9 QRSD: 94 T: 11 QT: 398 QTc: 423 Interpretive Statements SINUS RHYTHM NORMAL ECG RI6.02 No previous ECG available for comparison
[2020-06-18 07:00] VITALS: BP 102/65
[2020-06-18] MEDS ORDERED: LOSA25TA12 PO (07:00)
[2020-06-18] MEDS ORDERED: tiZANidine 4 MG TABLET. PO PRN (08:00)
[2020-06-18] MEDS ORDERED: HYDROcodone/APAP 5/325MG 1 TAB TABLET PO PRN (08:00)
[2020-06-18] MEDS ORDERED: ALPRAZolam 0.5 MG TABLET PO PRN (08:00)
[2020-06-18] MEDS ORDERED: FLUoxetine HCL 20 MG CAPSULE PO SCH (09:00)
[2020-06-18] MEDS ORDERED: FLU VACC QS 2020-21(6MOS+)/PF 0.5 ML SYRINGE. VAX IM ONE (09:00)
[2020-06-18] MEDS ORDERED: LOSARTAN POTASSIUM 25 MG TABLET. PO SCH (09:00)
[2020-06-18 11:00] VITALS: BP 126/77
--- NOTE | 2020-06-18 11:19 | PDOC2 ---
DEBI PIZARRO CANDLE WRAPPER 06/18/20 1119: CARDIAC CONSULT DATE OF CONSULT Date of Consult DATE: 06/18/20 TIME: 11:15 REASON FOR CONSULT Reason for Consult: Chest pain REFERRING PHYSICIAN Referring Physician: Yamileth SOURCE Source: Chart review, Patient HISTORY OF PRESENT ILLNESS HISTORY OF PRESENT ILLNESS This is a pleasant 49 yo female admitted for complains of chest pain. Reports this occurred yesterday like a toddler on her mid chest. She checked her BP at that time as she was also having throbbing CONROY without visual or auditory disturbances but started around her eyebrows then back to her shoulder and neck, and her BP was 225/115. She did take imitrex for her CONROY at that time thinking it was migraine. She failed to take her routine losartan for about a week and just got refilled back yesterday. She also takes ibuprofen 1800 mg at least daily for her lower back. Denies any SOA, nausea or vomiting. No abdominal pain and no heartburn. No exertional chest or dyspnea. No hx of falls, MVA or any injury, No VTE, CAD. PAST MEDICAL HISTORY Cardiovascular: HTN Pulmonary: Other (NEIL CPAP compliant) CENTRAL NERVOUS SYSTEM: Migraine Heme/Onc: No pertinent hx Hepatobiliary: No pertinent hx Psych: Anxiety Musculoskeletal: low back pain (HNP), Osteoarthritis Rheumatologic: No pertinent hx Infectious disease: No pertinent hx ENT: No pertinent hx Renal/: No pertinent hx, Other (nephrolithiasis) Endocrine: Diabetes (2) PAST SURGICAL HISTORY Past Surgical History: Cholecystectomy, , Hysterectomy, Other (open renal stone removal) FAMILY HISTORY Family History: Hypertension (sister) SOCIAL HISTORY Smoke: Quit ALCOHOL: none Drugs: None Lives: with Family CURRENT MEDICATIONS CURRENT MEDICATIONS Current Medications Medications (Trade) Dose Ordered Sig/Axel Route PRN Reason Start Time Stop Time Status Last Admin Dose Admin Aspirin (Aspirin Chewable) 324 mg 1X ONCE PO 06/17/20 19:45 06/17/20 19:46 DC 06/17/20 19:49 Iohexol (Omnipaque 350 Mg/ml) 100 ml 1X ONCE IV 06/17/20 20:45 06/17/20 20:46 DC 06/17/20 20:51 Acetaminophen (Tylenol) 1,000 mg 1X ONCE PO 06/17/20 22:30 06/17/20 22:31 DC 06/17/20 22:13 Ondansetron HCl (Zofran) 4 mg PRN Q6HRS PRN IVP NAUSEA/VOMITING 1ST CHOICE 06/17/20 22:15 06/18/20 00:22 Morphine Sulfate (Morphine Sulfate) 2 mg PRN Q1HR PRN IV SEVERE PAIN 7-10 06/17/20 22:15 06/18/20 06:21 Enoxaparin Sodium (Lovenox 40mg Syringe) 40 mg Q24H SQ 06/17/20 23:00 06/18/20 00:25 Ketorolac Tromethamine (Toradol 15mg Vial) 15 mg 1X ONCE IVP 06/17/20 23:00 06/17/20 23:01 DC 06/17/20 22:37 Tizanidine HCl (Zanaflex) 2 mg TID PO 06/18/20 03:00 06/18/20 03:14 Acetaminophen/ Hydrocodone Bitart (Lortab 5/325) 1 tab PRN Q6HRS PRN PO PAIN 06/18/20 08:00 06/18/20 09:17 Fluoxetine HCl (PROzac) 40 mg DAILY PO 06/18/20 09:00 06/18/20 09:18 ALLERGIES ALLERGIES: Coded Allergies: codeine (Verified Allergy, Intermediate, 06/17/20) hydrocodone (Verified Allergy, Intermediate, 06/17/20) ROS Review of System 14 point ROS evaluated with pertinent positives noted per HPI PHYSICAL EXAM General: Alert, Oriented X3, Cooperative, No acute distress HEENT: Atraumatic, Mucous membr. moist/pink Lungs: Clear to auscultation, Normal air movement Heart: Regular rate (SR), Normal S1, Normal S2, No murmurs Abdomen: Soft, No tenderness Extremities: No cyanosis, No edema Skin: No breakdown, No significant lesion Neuro: Normal speech, Sensation intact Psych/Mental Status: Mental status NL, Mood NL MUSCULOSKELETAL: Osteoarthritic changes both hands VITALS/I&O VITALS/I&O: Vital Signs Date Time Temp Pulse Resp B/P (MAP) Pulse Ox O2 Delivery O2 Flow Rate FiO2 06/18/20 07:00 97.9 60 16 102/65 (77) 94 Room Air 97.9 I & O 06/17/20 06/17/20 06/18/20 15:00 23:00 07:00 Intake Total 0 ml Balance 0 ml LABS Lab: Laboratory Tests Test 06/17/20 19:35 06/17/20 20:05 06/17/20 20:30 06/18/20 01:35 White Blood Count 6.9 x10^3/uL (4.0-11.0) Red Blood Count 4.76 x10^6/uL (3.50-5.40) Hemoglobin 12.1 g/dL (12.0-15.5) Hematocrit 36.9 % (36.0-47.0) Mean Corpuscular Volume 78 fL (79-100) L Mean Corpuscular Hemoglobin 26 pg (25-35) Mean Corpuscular Hemoglobin Concent 33 g/dL (31-37) Red Cell Distribution Width 14.6 % (11.5-14.5) H Platelet Count 295 x10^3/uL (140-400) Neutrophils (%) (Auto) 35 % (31-73) Lymphocytes (%) (Auto) 48 % (24-48) Monocytes (%) (Auto) 8 % (0-9) Eosinophils (%) (Auto) 7 % (0-3) H Basophils (%) (Auto) 1 % (0-3) Neutrophils # (Auto) 2.4 x10^3/uL (1.8-7.7) Lymphocytes # (Auto) 3.3 x10^3/uL (1.0-4.8) Monocytes # (Auto) 0.6 x10^3/uL (0.0-1.1) Eosinophils # (Auto) 0.5 x10^3/uL (0.0-0.7) Basophils # (Auto) 0.1 x10^3/uL (0.0-0.2) Prothrombin Time 12.8 SEC (11.7-14.0) Prothrombin Time INR 1.0 (0.8-1.1) Activated Partial Thromboplast Time 25 SEC (24-38) Sodium Level 140 mmol/L (136-145) Potassium Level 3.6 mmol/L (3.5-5.1) Chloride Level 104 mmol/L (98-107) Carbon Dioxide Level 24 mmol/L (21-32) Anion Gap 12 (6-14) Blood Urea Nitrogen 14 mg/dL (7-20) Creatinine 0.7 mg/dL (0.6-1.0) Estimated GFR (Cockcroft-Gault) 88.6 BUN/Creatinine Ratio 20 (6-20) Glucose Level 202 mg/dL (70-99) H Calcium Level 9.1 mg/dL (8.5-10.1) Magnesium Level 1.9 mg/dL (1.8-2.4) Total Bilirubin 0.3 mg/dL (0.2-1.0) Aspartate Amino Transferase (AST) 23 U/L (15-37) Alanine Aminotransferase (ALT) 42 U/L (14-59) Alkaline Phosphatase 80 U/L (46-116) Troponin I Quantitative < 0.017 ng/mL (0.000-0.055) < 0.017 ng/mL (0.000-0.055) IH-Tcm-J-Type Natriuretic Peptide 202 pg/mL (0-124) H Total Protein 7.1 g/dL (6.4-8.2) Albumin 3.7 g/dL (3.4-5.0) Albumin/Globulin Ratio 1.1 (1.0-1.7) Lipase 91 U/L (73-393) Urine Collection Type Unknown Urine Color Yellow Urine Clarity Clear Urine pH 5.5 (<5.0-8.0) Urine Specific Jackson <=1.005 (1.000-1.030) Urine Protein Negative mg/dL (NEG-TRACE) Urine Glucose (UA) Negative mg/dL (NEG) Urine Ketones (Stick) Negative mg/dL (NEG) Urine Blood Negative (NEG) Urine Nitrite Negative (NEG) Urine Bilirubin Negative (NEG) Urine Urobilinogen Dipstick 0.2 mg/dL (0.2 mg/dL) Urine Leukocyte Esterase Trace (NEG) Urine RBC 0 /HPF (0-2) Urine WBC 1-4 /HPF (0-4) Urine Squamous Epithelial Cells Few /LPF Urine Bacteria Few /HPF (0-FEW) Urine Mucus Slight /LPF Test 06/18/20 07:52 Glucose (Fingerstick) 136 mg/dL (70-99) H Laboratory Tests 06/17/20 19:35 Laboratory Tests 06/17/20 20:05 ASSESSMENT/PLAN ASSESSMENT/PLAN 1. Chest pain: normal EKG and trops. Discomfort possibly from uncontrolled HTN, no further recurrence 2. HTN urgency: off ARB for a week plus took her triptan due to CONROY. Now controlled 3. DM2: on metformin 4. Anxiety 5. Obesity 6. NEIL: CPAP compliant 7. Chronic high dose NSAID use due to Lumbar HNP Recommendations 1. Discussed outpt stress test and cardiac risk factors but refused at this time 2. Restart home losartan 3. Discussed compliance, reduction of NSAID use, diet modification RANULFO ANGELO MD 06/18/20 0364: CARDIAC CONSULT ASSESSMENT/PLAN ASSESSMENT/PLAN Patient seen and examined Chest pain. Resolved. No acute ischemic EKG changes. No elevation in troponin. As per discussion above we have recommended outpatient stress testing but the patient has refused at this time. Hypertensive urgency. Has been off her home medications. Medications restarted and her blood pressure is under much better control. Diabetes mellitus. Continuing home treatment. Obstructive sleep apnea. On CPAP. Discussed medications and compliance with the patient. Thank you for allowing us to participate in the care of your patient. DEBI PIZARRO APRN Jun 18, 2020 11:19 RANULFO ANGELO MD Jun 18, 2020 19:04
[2020-06-18 11:41] LABS: CHOLESTEROL/HDL RATIO 5.2
[2020-06-18] MEDS ORDERED: KETOROLAC 30 MG/ML VIAL. IVP ONE (11:45)
--- NOTE | 2020-06-18 12:36 | NUR ---
SS following up with discharge planning. SS reviewed pt chart and discussed with pt RN. Pt is from home with spouse and is currently on room air. Cardiology consulted. SS will continue to follow for discharge planning.
--- NOTE | 2020-06-18 13:00 | SSS ---
ADMIT DATE: 06/18/2020 CHIEF COMPLAINT: Chest pain. HISTORY OF PRESENT ILLNESS: The patient is a pleasant middle-aged female who presented with chest pain. She has some associated anxiety, rated her symptoms at 9/10. She was admitted overnight for observation. This morning, she was seen by Cardiology. They feel like this is probably not cardiac. I also examined the patient, she is doing well. We plan to discharge with close outpatient followup. PAST MEDICAL HISTORY: Chronic pain, migraines. ALLERGIES: PENICILLIN. FAMILY HISTORY: Diabetes. SOCIAL HISTORY: She does not drink, smoke or take drugs. She is a DOCUMENT CONTROL CLERK. MEDICATIONS: Reviewed, please refer to the MRAD. REVIEW OF SYSTEMS: GENERAL: No history of weight change, weakness or fevers. SKIN: No bruising, hair changes or rashes. EYES: No blurred, double or loss of vision. NOSE AND THROAT: No history of nosebleeds, hoarseness or sore throat. HEART: No history of palpitations, chest pain or shortness of breath on exertion. LUNGS: Denies cough, hemoptysis, wheezing or shortness of breath. GASTROINTESTINAL: Denies changes in appetite, nausea, vomiting, diarrhea or constipation. GENITOURINARY: No history of frequency, urgency, hesitancy or nocturia. NEUROLOGIC: Denies history of numbness, tingling, tremor or weakness. PSYCHIATRIC: No history of panic, anxiety or depression. ENDOCRINE: No history of heat or cold intolerance, polyuria or polydipsia. EXTREMITIES: Denies muscle weakness, joint pain, pain on walking or stiffness. PHYSICAL EXAMINATION: VITALS: Within normal limits and are stable. GENERAL: No apparent distress. Alert and oriented. HEENT: Normal cephalic atraumatic, external auditory canals are patent. Eyes: Extraocular muscles are intact, pupils are equally round and reactive to light and accommodation. MUSCULOSKELETAL: Well developed, well nourished, good range of motion. ENDOCRINE: No thyromegaly was palpated. LYMPHATICS: No cervical chain or axillary nodes were noted. HEMATOPOIETIC: No bruising. NECK: Supple, no JVD, no thyromegaly was noted. LUNGS: Clear to auscultation in all lung angela without rhonchi or wheezing. HEART: RRR, S1, S2 present. Peripheral pulses intact, no obvious murmurs were noted. ABDOMEN: Soft, nontender. Positive bowel sounds no organomegaly, normal bowel sounds. EXTREMITIES: Without any cyanosis, clubbing, or edema. Pedal pulses intact, Homans sign is negative. NEUROLOGIC: Normal speech, normal tone. A and O x 3, moves all extremities, no obvious focal deficits. PSYCHIATRIC: Normal affect, normal mood. Stable. SKIN: No ulcerations or rashes, good skin turgor, no jaundice. VASCULAR: Good capillary refill, neurovascular bundle appears to be intact. ASSESSMENT AND PLAN: Resolving chest pain, suspect hypertensive urgency. Today, her vital signs are back to normal. She is doing well. We plan to discharge. [place] DO DR: AMANDA/lizbeth JOB#: [id number] / [id number]
--- NOTE | 2020-06-18 13:09 | SSS ---
ADMIT DATE: CHIEF COMPLAINT: Chest pain. HISTORY OF PRESENT ILLNESS: The patient is a pleasant middle-aged female who presented with chest pain. She rates it 7/10. She has some associated anxiety, it was worse with moving, better with sitting still, described as very irritating. I discussed the case with ER physician. We admitted the patient overnight for observation. This morning, she is doing well. She was seen by Cardiology. We plan to discharge the patient with close outpatient followup. PAST MEDICAL HISTORY: Hypertension, hyperlipidemia, chronic pain, arthritis and headaches, polypharmacy. ALLERGIES: CODEINE AND HYDROCODONE. FAMILY HISTORY: Diabetes. SOCIAL HISTORY: She does not drink, smoke or take drugs. She is a RECORD SYSTEMS ANALYST. MEDICATIONS: Reviewed, please refer to the MRAD. REVIEW OF SYSTEMS: GENERAL: No history of weight change, weakness or fevers. SKIN: No bruising, hair changes or rashes. EYES: No blurred, double or loss of vision. NOSE AND THROAT: No history of nosebleeds, hoarseness or sore throat. HEART: No history of palpitations, chest pain or shortness of breath on exertion. LUNGS: Denies cough, hemoptysis, wheezing or shortness of breath. GASTROINTESTINAL: Denies changes in appetite, nausea, vomiting, diarrhea or constipation. GENITOURINARY: No history of frequency, urgency, hesitancy or nocturia. NEUROLOGIC: Denies history of numbness, tingling, tremor or weakness. PSYCHIATRIC: No history of panic, anxiety or depression. ENDOCRINE: No history of heat or cold intolerance, polyuria or polydipsia. EXTREMITIES: Denies muscle weakness, joint pain, pain on walking or stiffness. PHYSICAL EXAMINATION: VITALS: Within normal limits and are stable. GENERAL: No apparent distress. Alert and oriented. HEENT: Normal cephalic atraumatic, external auditory canals are patent. EYES: Extraocular muscles are intact, pupils are equally round and reactive to light and accommodation. MUSCULOSKELETAL: Well developed, well nourished, good range of motion. ENDOCRINE: No thyromegaly was palpated. LYMPHATICS: No cervical chain or axillary nodes were noted. HEMATOPOIETIC: No bruising. NECK: Supple, no JVD, no thyromegaly was noted. LUNGS: Clear to auscultation in all lung angela without rhonchi or wheezing. HEART: RRR, S1, S2 present. Peripheral pulses intact, no obvious murmurs were noted. ABDOMEN: Soft, nontender. Positive bowel sounds no organomegaly, normal bowel sounds. EXTREMITIES: Without any cyanosis, clubbing, or edema. Pedal pulses intact, Homans sign is negative. NEUROLOGIC: Normal speech, normal tone. A and O x 3, moves all extremities, no obvious focal deficits. PSYCHIATRIC: Normal affect, normal mood. Stable. SKIN: No ulcerations or rashes, good skin turgor, no jaundice. VASCULAR: Good capillary refill, neurovascular bundle appears to be intact. ASSESSMENT AND PLAN: Resolving hypertensive urgency and chest pain. Clinically, the patient is back to her baseline. We will discharge if okay with Cardiology. DISPOSITION: Home. ACTIVITY: As tolerated. DIET: Low sodium. MEDICATIONS: Please see the MRAD. I did leave a prescription for p.r.n. Toradol and told her to stop taking the ibuprofen because she is taking too much ibuprofen. TOTAL TIME: 32 minutes. SO DE LA [place] DO DR: AMANDA/lizbeth JOB#: [id number] / [id number]
--- NOTE | 2020-06-18 14:00 | NUR ---
Discharge: Teaching verbal and written. Reviewed medication, follow-up, stress test, echo, ect. Patient and verbalized understanding. All belongings with patient. Prescription for Toradol given to patient. Patient assisted off of unit via wheelchair accompanied by ROBERTO
[2020-06-18] MEDS ORDERED: TEMAZEPAM 15 MG CAPSULE PO SCH (21:00)
== END 2020-06-18 13:35 | disposition home or self-care (01) ==
LOC: ER 19:27 → ED HOLD 22:03 → 2 SOUTH 23:09
PROVIDERS: ADMIT Family Medicine; ATTEND Family Medicine
DX: R07.89 Other chest pain (principal); I16.0 Hypertensive urgency; I10 Essential (primary) hypertension; F41.9 Anxiety disorder, unspecified; E78.5 Hyperlipidemia, unspecified; E66.9 Obesity, unspecified; E11.9 Type 2 diabetes mellitus without complications; M19.90 Unspecified osteoarthritis, unspecified site; M51.26 Other intervertebral disc displacement, lumbar region; G43.909 Migraine, unspecified, not intractable, without status migrainosus; G47.33 Obstructive sleep apnea (adult) (pediatric); Z23 Encounter for immunization; Z87.891 Personal history of nicotine dependence; Z90.710 Acquired absence of both cervix and uterus; Z98.891 History of uterine scar from previous surgery; Z90.49 Acquired absence of other specified parts of digestive tract; Z79.84 Long term (current) use of oral hypoglycemic drugs; Z68.36 Body mass index [BMI] 36.0-36.9, adult
CPT/HCPCS: 36415; 71045; 71275; 80053; 80061; 81001; 82962; 83690; 83735; 83880; 84443; 84484; 85025; 85610; 85730; 87086; 90471; 90686; 93005; 96372; 96374; 96375; 96376; 99285; G0378; J1650; J1885; J2270; J2405; Q9967; G0379

== ENCOUNTER → 2021-01-02 | Outpatient (CLI) | payer MEDICAID ==
[~2021-01-02] MED LIST changes: +CINN500C2 PO; +HYDR-2761 PO; +IBUP-577 PO; -LISI-338 PO; +LISI-517 PO; +LOSA25TA4 PO; +SUMA100T3 PO; +TIZA4TAB2 PO
--- NOTE | 2021-01-02 13:57 | KCIC ---
EXAM: Right elbow, 2 views. HISTORY: Pain. COMPARISON: None. FINDINGS: 2 views of the right elbow are obtained. There is no fracture, dislocation or subluxation. There is no joint effusion. There is minimal degenerative spurring involving the proximal ulna and ra dial head. IMPRESSION: No acute osseous finding. Mild right elbow osteoarthritis. Electronically signed by: Pepper Lobato MD (01/02/2021 1:55 PM) [id number]
--- NOTE | 2021-01-02 13:58 | KCIC ---
EXAM: Right knee, 3 views. HISTORY: Pain. COMPARISON: None. FINDINGS: 3 views the right knee are obtained. There is no fracture, dislocation or subluxation. Ther e is enthesopathy along the superior patella. There is a small corticated ossicle along the superior patella. There is no significant joint effusion. There are small benign bone islands. IMPRESSION: No acute osseous finding. Electronically signed by: Pepper Lobato MD (01/02/2021 1:56 PM) [id number]
== END ==
LOC: KCIC 13:06
PROVIDERS: ATTEND Nurse Practitioner Gerontology
DX: M76.51 Patellar tendinitis, right knee (principal)
CPT/HCPCS: 73070; 73562

== ENCOUNTER → 2021-01-20 | Outpatient (CLI) | payer MEDICAID ==
[~2021-01-20] MED LIST changes: +LOSA25TA12 PO; -LOSA25TA4 PO
--- NOTE | 2021-01-20 14:25 | KCIC ---
STUDY: MRI of the right knee without contrast INDICATION: Medial right knee pain for the past 2 months. COMPARISON: 01/02/2021 radiographs. TECHNIQUE: Multiplanar MR imaging of the right knee performed without the use of intravenous or intra -articular contrast. FINDINGS: Menisci: Horizontal/oblique undersurface tear of the medial meniscus centered along the body segment but extending to the posterior body/horn junction. Background myxoid degeneration. There appears to b e a trace amount of meniscal tissue flipped downward towards the meniscotibial recess along the anter ior body, image 7 series 6 and image 12 series 8. The lateral meniscus is intact. Cruciate ligaments: Intact. Collateral ligaments: Mild reactive edema along the MCL complex. Unremarkable lateral collateral liga ments. Tendons: Intact. Cartilage: Patellofemoral: High-grade/full-thickness chondrosis involving much of the patella but most notably t he lateral facet and median ridge. Less pronounced chondrosis along the trochlea. Lateral compartment: Chondral thinning along the posterior nonweightbearing lateral femoral condyle. Medial compartment: Partial thickness chondrosis of the weightbearing medial femoral condyle and tibi al plateau. Bones: Scattered small osteophytes. Degenerative marrow edema along the peripheral lip of the medial tibial plateau. Miscellaneous: Small knee joint effusion. Tiny Tolbert's cyst. Mild scattered soft tissue edema IMPRESSION: 1. Horizontal/oblique undersurface tear of the medial meniscus body and propagating towards the post erior horn with a small amount of tissue displaced downward towards the meniscotibial recess (see guerra images). The lateral meniscus is intact as are the cruciate and collateral ligaments. 2. 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 Scattered small osteophytes. 3. Small knee joint effusion and a tiny Tolbert's cyst. Electronically signed by: LUCIA BARRIOS MD (01/20/2021 2:22 PM) [id number]
== END ==
LOC: KCIC MRI 12:22
PROVIDERS: ATTEND Physician Assistant
DX: M71.21 Synovial cyst of popliteal space [Baker], right knee (principal); M25.461 Effusion, right knee; M25.761 Osteophyte, right knee
CPT/HCPCS: 73721

== ENCOUNTER → 2021-02-18 | Outpatient (CLI) | payer MEDICAID ==
[~2021-02-18] MED LIST changes: -LOSA25TA12 PO; +LOSA25TA4 PO
[2021-02-18 09:32] LABS: BASO # 0.1 x10^3/uL (0.0-0.2); BASO % 1 % (0-3); EOS # 0.5 x10^3/uL (0.0-0.7); EOS % 8 % (0-3); HEMATOCRIT 36.1 % (36.0-47.0); HEMOGLOBIN 11.9 g/dL (12.0-15.5); LYMPH # 2.2 x10^3/uL (1.0-4.8); LYMPH % 36 % (24-48); MEAN CORPUSCULAR HEMOGLOBIN 25 pg (25-35); MEAN CORPUSCULAR HGB CONC 33 g/dL (31-37); MEAN CORPUSCULAR VOLUME 77 fL (79-100); MONO # 0.6 x10^3/uL (0.0-1.1); MONO % 9 % (0-9); NEUT # 2.9 x10^3/uL (1.8-7.7); NEUT % 47 % (31-73); PLATELET COUNT 301 x10^3/uL (140-400); RED BLOOD COUNT 4.69 x10^6/uL (3.50-5.40); RED CELL DISTRIBUTION WIDTH 15.7 % (11.5-14.5); WHITE BLOOD COUNT 6.3 x10^3/uL (4.0-11.0)
[2021-02-18 10:00] LABS: ALBUMIN/GLOBULIN RATIO 1.1 (1.0-1.7); CREATININE 0.5 mg/dL (0.6-1.0); GFR 130.1; POTASSIUM 3.9 mmol/L (3.5-5.1); TOTAL BILIRUBIN 0.5 mg/dL (0.2-1.0); TOTAL PROTEIN 7.6 g/dL (6.4-8.2)
[2021-02-18 10:01] LABS: CHOLESTEROL/HDL RATIO 4.3
[2021-02-18 20:12] LABS: CREAT RD UR 60.9 mg/dL (Not Estab.); MICROALB RD UR 7.3 ug/mL (Not Estab.)
[2021-02-19 00:08] LABS: HEMOGLOBIN A1C 7.5 % (4.8-5.6)
== END ==
LOC: LAB 08:17
PROVIDERS: ATTEND Family Medicine
DX: E11.65 Type 2 diabetes mellitus with hyperglycemia (principal); E78.2 Mixed hyperlipidemia
CPT/HCPCS: 80053; 80061; 82043; 82570; 83036; 83721; 85025

== ENCOUNTER → 2021-02-25 | Outpatient (CLI) | payer MEDICAID ==
[~2021-02-25] MED LIST changes: +ATOR10TA60 PO; +FLUT16SP NS; +HYDR-2765 PO; +LIDO700A21 TP
== END ==
LOC: LAB 09:40
PROVIDERS: ATTEND Orthopaedic Surgery
DX: S83.241D Other tear of medial meniscus, current injury, right knee, subsequent encounter (principal); Z01.812 Encounter for preprocedural laboratory examination; Z20.822 Contact with and (suspected) exposure to COVID-19; X58.XXXD Exposure to other specified factors, subsequent encounter
CPT/HCPCS: U0003

== ENCOUNTER 2021-02-28 09:05 | Day surgery (SDC) | payer MEDICAID ==
[~2021-02-28] VITALS: Ht 165.1 cm; Wt 98.0 kg
[~2021-02-28 09:05] MED LIST changes: -HYDR-2765 PO; +INSULIN LISPRO 100 UNIT/ML 3ML VIAL for OP,RR ONLY. SQ PRN; +IV RINGERS,LACTATED 1000ML 1,000 ML IV SCH; +MORPHINE SULFATE 2 MG/ML VIAL. IVP PRN; +PROCHLORPERAZINE 10 MG/2 ML VIAL. IVP PRN; +ceFAZolin 2GM PREMIX 2 GM/50 ML BAG IV ONE; +fentaNYL PF VIAL 100 MCG/2 ML VIAL IVP PRN
[2021-02-28 09:28] VITALS: BP 124/74
[2021-02-28] MEDS ORDERED: HYDR-2765 PO (09:52)
--- NOTE | 2021-02-28 09:55 | DISCH ---
DISCHARGE INSTRUCTIONS Condition on Discharge Condition on Discharge: Stable Activity After Discharge Activity Instructions for Disc: Progressive ambulation (May advance walking slowly as tolerated, fine motor use acceptable with hand such as eating writing typing as tolerated) Lifting Instructions after Dis: No heavy lifting, No pulling or pushing Diet after Discharge Diet after Discharge: Cardiac Wound Incision Care Wound/Incision Care: Ice to area for comfort, Change dressing (Remove knee dressing in 2 days may then shower), Do not change dressing (Keep dressing on wrist for protection until follow-up visit unless wet or soiled) Contacting the after DC Call your doctor for: Concerns you may have Follow-Up Follow up with: Dr. Oro or Kalina 10 days EKTA ORO MD Feb 28, 2021 09:55
[2021-02-28] MEDS ORDERED: SCOPOLAMINE 1.5MG PATCH. TD ONE (10:00)
[2021-02-28] MEDS ORDERED: BUPIVACAINE-EPI 0.5% 30 ML VIAL KIT. ONE (10:58)
[2021-02-28] MEDS ORDERED: BUPIVACAINE MPF 0.25% 30 ML VIAL. ONE (10:58)
[2021-02-28] MEDS ORDERED: BUPIVACAINE MPF 0.5% 30 ML VIAL. ONE (11:00)
[2021-02-28] MEDS ORDERED: methylPREDNISolone ACETATE 80 MG/ML VIAL. ONE (11:00)
[2021-02-28] MEDS ORDERED: SEVOFLURANE 61 TO 120 MINUTES. IH ONE (11:15)
[2021-02-28] MEDS ORDERED: PROPOFOL 10 MG/ML (20ML) VIAL. IV ONE (11:15)
[2021-02-28] MEDS ORDERED: KETOROLAC 30 MG/ML VIAL. ONE ×2 (11:15→12:33)
[2021-02-28] MEDS ORDERED: fentaNYL PF VIAL 100 MCG/2 ML VIAL ONE (11:15)
[2021-02-28] MEDS ORDERED: LIDOCAINE 2% PF 5 ML VIAL. ONE (11:15)
[2021-02-28] MEDS ORDERED: ePHEDrine PF IN SALINE 50 MG/10 ML SYRINGE. IV ONE (11:29)
[2021-02-28] MEDS ORDERED: methylPREDNISolone ACETATE 80 MG/ML VIAL. INT ART ONE (11:36)
[2021-02-28] MEDS ORDERED: methylPREDNISolone ACETATE 80 MG/ML VIAL. INJ ONE (12:00)
[2021-02-28] MEDS ORDERED: BUPIVACAINE-EPI 0.5% 30 ML VIAL KIT. INJ ONE (12:00)
[2021-02-28] MEDS ORDERED: DEXAMETHASONE SOD PHOS 4 MG/ML VIAL ONE (12:21)
[2021-02-28] MEDS ORDERED: ONDANSETRON PF 4 MG/2 ML VIAL. ONE (12:21)
[2021-02-28] MEDS ORDERED: HYDROcodone/APAP 7.5/325MG 1 TAB TABLET PO ONE (12:45)
[2021-02-28] MEDS ORDERED: HYDROmorphone 2 MG/ML VIAL ONE ×2 (12:55→13:28)
[2021-02-28] MEDS: HYDROmorphone 2 MG/ML VIAL IVP PRN ×5 (12:59→13:45)
[2021-02-28] MEDS ORDERED: PROCHLORPERAZINE 10 MG/2 ML VIAL. ONE (13:28)
[2021-02-28 13:42] VITALS: BP 135/58
--- NOTE | 2021-02-28 15:05 | PDOC4 ---
Operative Note Operative Note Date of surgery: 02/28/2021 Preoperative diagnosis: Right knee medial meniscus tear, right carpal tunnel syndrome and right elbow lateral epicondylitis Postoperative diagnosis: Same with posterior horn displaceable medial meniscus tear and moderate median nerve compression at the carpal tunnel Operative procedure: Right knee arthroscopy partial medial meniscectomy and excision medial parapatellar plica. Right carpal tunnel release. Injection right elbow extensor origin Surgeon: Shorty Anesthesia: General Estimated blood loss: 10 cc total Complications: None Operative indications: Please see my preoperative orthopedic clinic note for detailed operative indications and note that we had talked about the structure and function of the meniscus the current mechanical symptoms that she is having and the possibility of operative treatment of excising the unstable portion of the meniscus to address the mechanical symptoms. I emphasized that I cannot undo any degenerative type changes over the symptoms that go along with those and those would have to be treated symptomatically later with medications injection or other alternatives. Likewise I talked about the possibility of incomplete relief of the carpal tunnel release and the fact that we are taking pressure off the nerve and the body has to otherwise heal to the extent that is possible. We talked about the possibility of infection nerve or blood vessel damage continued pain medical or other anesthetic complications including blood clots among others all her questions were answered she wishes to proceed with surgical evaluation and treatment Operative text: Patient was identified procedure verified patient placed in the supine position on the operating table. After adequate amounts of general anesthesia were administered the right lower extremity was prepped and draped in standard sterile fashion with a thigh tourniquet. After timeout was performed patient procedure identified and verified the right lower extremity was exsanguinated by Esmarch bandage tourniquet inflated to 250 mmHg a lateral portal was established medial portal established using spinal needle localization and the knee joint was systematically examined. She was found to have a displaceable tear of the posterior horn root area of the medial meniscus which was trimmed back to stable tissue using the arthroscopic punch and shaver. ACL was probed and found to be intact. She had a medial parapatellar plica which was excised to avoid further irritation and did have patellar and trochlear chondromalacia that did not require debridement and no loose bodies in the gutters or suprapatellar pouch. The knee was drained of arthroscopic fluid portals closed with nylon suture portal and fat pad areas were injected with half percent Marcaine sterile dressings were applied. Attention was then turned to the right upper extremity as the right upper extremity was exsanguinated tourniquet inflated to 250 mmHg a longitudinal incision was made just distal to the distal wrist crease patient was returned to recovery room stable condition having tolerated procedure well EKTA PERDOMO MD Feb 28, 2021 15:05
== END 2021-02-28 14:20 | disposition home or self-care (01) ==
LOC: SURG 09:05
PROVIDERS: ATTEND Orthopaedic Surgery
DX: S83.241A Other tear of medial meniscus, current injury, right knee, initial encounter (principal); G56.01 Carpal tunnel syndrome, right upper limb; M77.11 Lateral epicondylitis, right elbow; I10 Essential (primary) hypertension; E78.00 Pure hypercholesterolemia, unspecified; E11.9 Type 2 diabetes mellitus without complications; J45.909 Unspecified asthma, uncomplicated; G47.30 Sleep apnea, unspecified; F41.9 Anxiety disorder, unspecified; F32.9 Major depressive disorder, single episode, unspecified; Z90.49 Acquired absence of other specified parts of digestive tract; Z90.710 Acquired absence of both cervix and uterus; Z98.51 Tubal ligation status; Z98.890 Other specified postprocedural states; Z79.899 Other long term (current) drug therapy; Z79.84 Long term (current) use of oral hypoglycemic drugs; Z87.891 Personal history of nicotine dependence; Z88.6 Allergy status to analgesic agent; X58.XXXA Exposure to other specified factors, initial encounter; Y93.89 Activity, other specified; Y92.89 Other specified places as the place of occurrence of the external cause; Y99.8 Other external cause status
CPT/HCPCS: 20605; 29881; 64721; 82962; A4209; A4930; A6402; J0690; J0780; J1040; J1100; J1170; J1885; J2405; J2704; J3010; J3490; A4223; A4657; A6452

== ENCOUNTER 2021-04-24 16:45 | Emergency (ER) | payer MEDICAID ==
[~2021-04-24] VITALS: Ht 167.6 cm; Wt 95.5 kg
[~2021-04-24 16:45] MED LIST changes: +HYDR-2765 PO; -INSULIN LISPRO 100 UNIT/ML 3ML VIAL for OP,RR ONLY. SQ PRN; -IV RINGERS,LACTATED 1000ML 1,000 ML IV SCH; -MORPHINE SULFATE 2 MG/ML VIAL. IVP PRN; -PROCHLORPERAZINE 10 MG/2 ML VIAL. IVP PRN; -ceFAZolin 2GM PREMIX 2 GM/50 ML BAG IV ONE; -fentaNYL PF VIAL 100 MCG/2 ML VIAL IVP PRN
[2021-04-24 17:27] LABS: BILIRUBIN,URINE NEGATIVE (NEG); CLARITY,URINE CLEAR; NITRITE,URINE NEGATIVE (NEG); PH,URINE 6.5 (<5.0-8.0); PROTEIN,URINE NEGATIVE (NEG-TRACE); UROBILINOGEN,URINE 0.2 mg/dL (0.2 mg/dL)
[2021-04-24] MEDS ORDERED: ONDANSETRON PF 4 MG/2 ML VIAL. IVP ONE (17:30)
[2021-04-24] MEDS ORDERED: TAMSULOSIN 0.4 MG CAP.ER.24H. PO ONE (17:30)
[2021-04-24] MEDS ORDERED: fentaNYL PF VIAL 100 MCG/2 ML VIAL IVP ONE (17:30)
[2021-04-24] MEDS ORDERED: IV NORMAL SALINE 1000ML BAG 1,000 ML IV ONE (17:30)
[2021-04-24 17:32] LABS: COLOR,URINE STRAW
[2021-04-24 17:34] LABS: BACTERIA,URINE MODERATE /HPF (0-FEW); RBC,URINE 0 /HPF (0-2)
[2021-04-24 17:35] LABS: WBC,URINE OCC /HPF (0-4)
[2021-04-24 17:39] LABS: BASO # 0.1 x10^3/uL (0.0-0.2); BASO % 1 % (0-3); EOS # 0.3 x10^3/uL (0.0-0.7); EOS % 4 % (0-3); HEMATOCRIT 35.8 % (36.0-47.0); HEMOGLOBIN 11.9 g/dL (12.0-15.5); LYMPH # 3.3 x10^3/uL (1.0-4.8); LYMPH % 43 % (24-48); MEAN CORPUSCULAR HEMOGLOBIN 25 pg (25-35); MEAN CORPUSCULAR HGB CONC 33 g/dL (31-37); MEAN CORPUSCULAR VOLUME 76 fL (79-100); MONO # 0.7 x10^3/uL (0.0-1.1); MONO % 9 % (0-9); NEUT # 3.2 x10^3/uL (1.8-7.7); NEUT % 43 % (31-73); PLATELET COUNT 303 x10^3/uL (140-400); RED BLOOD COUNT 4.72 x10^6/uL (3.50-5.40); RED CELL DISTRIBUTION WIDTH 15.8 % (11.5-14.5); WHITE BLOOD COUNT 7.6 x10^3/uL (4.0-11.0)
[2021-04-24 17:47] LABS: CALCIUM 9.8 mg/dL (8.5-10.1); CREATININE 0.7 mg/dL (0.6-1.0); GFR 88.2; POTASSIUM 4.9 mmol/L (3.5-5.1)
[2021-04-24 17:52] LABS: ALBUMIN 3.9 g/dL (3.4-5.0); ALBUMIN/GLOBULIN RATIO 1.1 (1.0-1.7); TOTAL BILIRUBIN 0.5 mg/dL (0.2-1.0); TOTAL PROTEIN 7.4 g/dL (6.4-8.2)
--- NOTE | 2021-04-24 18:20 | RAD ---
Exam: CT of abdomen and pelvis without contrast INDICATION: Back pain, history of stone TECHNIQUE: Sequential axial images through the abdomen and pelvis obtained without IV contrast. Sagit leighton and coronal reformatted images were reconstructed from the axial data and reviewed. Exposure: One or more of the following in the visualized dose reduction techniques were utilized for this examination: 1. Automated exposure control 2. Adjustment of the MA and/or KV according to patient size 3. Use of iterative of reconstructive technique Comparisons: 10/26/2017 FINDINGS: Heart size is normal. No pericardial effusion. There is a 5 mm nodule in the left lower lobe series 2 image 14. No pleural effusion or thickening. Evaluation solid organs is limited secondary to noncontrast technique. Liver, spleen, pancreas and adrenals are unremarkable. Gallbladder surgically absent. No perinephric inflammation or hydronephrosis. No renal or ureteral calculi are identified. Bladder is partially distended and not well evaluated. Uterus is absent. No abnormal adnexal mass. Diverticulosis noted at the descending and sigmoid colon without evidence of acute diverticulitis. Ap pendix is normal. No free intra-abdominal air or fluid. No obstruction. Abdominal aorta has a normal course and caliber. No enlarged intra-abdominal lymph nodes are identified. No suspicious osseous lesions or acute fractures. IMPRESSION: 1. Diverticulosis noted at the descending and sigmoid colon without evidence of acute diverticulitis . 2. Nonobstructing right renal calculi. No ureteral calculi or evidence for obstructive uropathy. 3. A 5 mm nodule in the left lower lobe. In a low-risk patient no further follow-up imaging is recom mended. In a high-risk patient optional one-year follow-up chest CT can BE performed. Electronically signed by: Yonis Rouse MD (04/24/2021 6:17 PM) [facility]
[2021-04-24] MEDS ORDERED: CYCL10TA2 PO (19:37)
[2021-04-24] MEDS ORDERED: HYDR-2761 PO (19:37)
--- NOTE | 2021-04-24 19:40 | PHYS DOC ---
Past Medical History Past Medical History: Anxiety, Depression, Diabetes-Type II, Hypertension Past Surgical History: Cholecystectomy, , Hysterectomy Smoking Status: Current Every Day Smoker Alcohol Use: None Drug Use: None General Adult EDM: Chief Complaint: FLANK PAIN HPI: HPI: Patient is a 50 year old female with a history of anxiety, hypertension, diabetes type 2, kidney stones, who presents the ED today complaining of 3 out of 10 left flank pain, symptoms began 2 days ago. Patient states symptoms are worse on movement. Denies any fever, nausea, vomiting. She is worried she has a kidney stone. Describes the pain as sharp. Review of Systems: Review of Systems: Constitutional: Denies fever or chills. [] Eyes: Denies change in visual acuity. [] HENT: Denies nasal congestion or sore throat. [] Respiratory: Denies cough or shortness of breath. [] Cardiovascular: Denies chest pain or edema. [] GI: Denies abdominal pain, nausea, vomiting, bloody stools or diarrhea. [] : Reports left flank pain. Denies dysuria. [] Musculoskeletal: Denies back pain Integument: Denies rash. [] Neurologic: Denies headache, focal weakness or sensory changes. [] Psychiatric: Denies depression or anxiety. [] Heart Score: C/O Chest Pain: N/A Risk Factors: Risk Factors: DM, Current or recent (<one month) smoker, HTN, HLP, family history of CAD, obesity. Risk Scores: Score 0 - 3: 2.5% MACE over next 6 weeks - Discharge Home Score 4 - 6: 20.3% MACE over next 6 weeks - Admit for Clinical Observation Score 7 - 10: 72.7% MACE over next 6 weeks - Early Invasive Strategies Current Medications: Current Medications Medications (Trade) Dose Ordered Sig/Axel Start Time Stop Time Status Last Admin Dose Admin Fentanyl Citrate (Fentanyl 2ml Vial) 50 mcg 1X ONCE 04/24/21 17:30 04/24/21 17:31 DC 04/24/21 17:43 50 MCG Ondansetron HCl (Zofran) 4 mg 1X ONCE 04/24/21 17:30 04/24/21 17:31 DC 04/24/21 17:43 4 MG Sodium Chloride 1,000 ml @ 1,000 mls/hr 1X ONCE 04/24/21 17:30 04/24/21 18:29 DC 04/24/21 17:43 1,000 MLS/HR Tamsulosin HCl (Flomax) 0.4 mg 1X ONCE 04/24/21 17:30 04/24/21 17:31 DC 04/24/21 17:43 0.4 MG Allergies: Allergies: Allergies Coded Allergies Type Severity Reaction Last Updated Verified No Known Drug Allergies 04/24/21 No Physical Exam: PE: Constitutional: Well developed, well nourished, no acute distress, non-toxic appearance. [] HENT: Normocephalic, atraumatic, bilateral external ears normal, oropharynx moist, no oral exudates, nose normal. [] Eyes: PERRLA, EOMI, conjunctiva normal, no discharge. [] Neck: Normal range of motion, no tenderness, supple, no stridor. [] Cardiovascular:Heart rate regular rhythm, no murmur [] Lungs & Thorax: Bilateral breath sounds clear to auscultation [] Abdomen: Bowel sounds normal, soft, no tenderness, no masses, no pulsatile masses. [] Skin: Warm, dry, no erythema, no rash. [] Back: No tenderness, slight left CVA tenderness. [] Extremities: No tenderness, no cyanosis, no clubbing, ROM intact, no edema. [] Neurologic: Alert and oriented X 3, normal motor function, normal sensory function, no focal deficits noted. [] Psychologic: Affect normal, judgement normal, mood normal. [] Current Patient Data: Labs: Laboratory Tests Test 04/24/21 17:19 04/24/21 17:33 Urine Collection Type Unknown Urine Color Straw Urine Clarity Clear Urine pH 6.5 (<5.0-8.0) Urine Specific [place] <=1.005 (1.000-1.030) Urine Protein Negative mg/dL (NEG-TRACE) Urine Glucose (UA) Negative mg/dL (NEG) Urine Ketones (Stick) Negative mg/dL (NEG) Urine Blood Negative (NEG) Urine Nitrite Negative (NEG) Urine Bilirubin Negative (NEG) Urine Urobilinogen Dipstick 0.2 mg/dL (0.2 mg/dL) Urine Leukocyte Esterase Trace (NEG) Urine RBC 0 /HPF (0-2) Urine WBC Occ /HPF (0-4) Urine Squamous Epithelial Cells Mod /LPF Urine Bacteria Moderate /HPF (0-FEW) White Blood Count 7.6 x10^3/uL (4.0-11.0) Red Blood Count 4.72 x10^6/uL (3.50-5.40) Hemoglobin 11.9 g/dL (12.0-15.5) L Hematocrit 35.8 % (36.0-47.0) L Mean Corpuscular Volume 76 fL (79-100) L Mean Corpuscular Hemoglobin 25 pg (25-35) Mean Corpuscular Hemoglobin Concent 33 g/dL (31-37) Red Cell Distribution Width 15.8 % (11.5-14.5) H Platelet Count 303 x10^3/uL (140-400) Neutrophils (%) (Auto) 43 % (31-73) Lymphocytes (%) (Auto) 43 % (24-48) Monocytes (%) (Auto) 9 % (0-9) Eosinophils (%) (Auto) 4 % (0-3) H Basophils (%) (Auto) 1 % (0-3) Neutrophils # (Auto) 3.2 x10^3/uL (1.8-7.7) Lymphocytes # (Auto) 3.3 x10^3/uL (1.0-4.8) Monocytes # (Auto) 0.7 x10^3/uL (0.0-1.1) Eosinophils # (Auto) 0.3 x10^3/uL (0.0-0.7) Basophils # (Auto) 0.1 x10^3/uL (0.0-0.2) Sodium Level 138 mmol/L (136-145) Potassium Level 4.9 mmol/L (3.5-5.1) Chloride Level 102 mmol/L (98-107) Carbon Dioxide Level 28 mmol/L (21-32) Anion Gap 8 (6-14) Blood Urea Nitrogen 11 mg/dL (7-20) Creatinine 0.7 mg/dL (0.6-1.0) Estimated GFR (Cockcroft-Gault) 88.2 BUN/Creatinine Ratio 16 (6-20) Glucose Level 188 mg/dL (70-99) H Calcium Level 9.8 mg/dL (8.5-10.1) Total Bilirubin 0.5 mg/dL (0.2-1.0) Aspartate Amino Transferase (AST) 29 U/L (15-37) Alanine Aminotransferase (ALT) 41 U/L (14-59) Alkaline Phosphatase 90 U/L (46-116) Total Protein 7.4 g/dL (6.4-8.2) Albumin 3.9 g/dL (3.4-5.0) Albumin/Globulin Ratio 1.1 (1.0-1.7) Laboratory Tests 04/24/21 17:33 Laboratory Tests 04/24/21 17:33 Vital Signs: Vital Signs Date Time Temp Pulse Resp B/P (MAP) Pulse Ox O2 Delivery O2 Flow Rate FiO2 04/24/21 17:43 20 97 Room Air 04/24/21 17:06 98.2 86 140/83 (83) 98.2 EKG: EKG: [] Radiology/Procedures: Radiology/Procedures: []PROCEDURE: CT ABDOMEN PELVIS WO CONTRAST Exam: CT of abdomen and pelvis without contrast INDICATION: Back pain, history of stone TECHNIQUE: Sequential axial images through the abdomen and pelvis obtained without IV contrast. Sagittal and coronal reformatted images were reconstructed from the axial data and reviewed. Exposure: One or more of the following in the visualized dose reduction techniques were utilized for this examination: 1. Automated exposure control 2. Adjustment of the MA and/or KV according to patient size 3. Use of iterative of reconstructive technique Comparisons: 10/26/2017 FINDINGS: Heart size is normal. No pericardial effusion. There is a 5 mm nodule in the left lower lobe series 2 image 14. No pleural effusion or thickening. Evaluation solid organs is limited secondary to noncontrast technique. Liver, spleen, pancreas and adrenals are unremarkable. Gallbladder surgically absent. No perinephric inflammation or hydronephrosis. No renal or ureteral calculi are identified. Bladder is partially distended and not well evaluated. Uterus is absent. No abnormal adnexal mass. Diverticulosis noted at the descending and sigmoid colon without evidence of acute diverticulitis. Appendix is normal. No free intra-abdominal air or fluid. No obstruction. Abdominal aorta has a normal course and caliber. No enlarged intra-abdominal lymph nodes are identified. No suspicious osseous lesions or acute fractures. IMPRESSION: 1. Diverticulosis noted at the descending and sigmoid colon without evidence of acute diverticulitis. 2. Nonobstructing right renal calculi. No ureteral calculi or evidence for obstructive uropathy. 3. A 5 mm nodule in the left lower lobe. In a low-risk patient no further follow-up imaging is recommended. In a high-risk patient optional one-year follow-up chest CT can BE performed. Electronically signed by: Yonis Whitehead MD (04/24/2021 6:17 PM) [facility] DICTATED and SIGNED BY: YONIS WHITEHEAD MD DATE: 04/24/21 [id number] Course & Med Decision Making: Course & Med Decision Making Pertinent Labs and Imaging studies reviewed. (See chart for details) This is a 50-year-old female patient presenting to the ED complaining of left flank pain for 2 days. History of kidney stones. UA negative for blood, noted for trace amount of leukocytes and is also contaminated with squamous cells epithelium. CBC with a normal WBC, CMP with glucose of 188. CT of the abdomen and pelvic noted for diverticulosis, nonobstructing right renal calculi. No ureteral calculi or evidence for obstructive uropathy. A 5 mm nodule in the left lower lobe. In a low-risk patient no further follow-up imaging is recommended. CT results were discussed with patient and a copy of the results given to her to take to her PCP for follow-up. Discharge to home. Provided return precautions. Shruthi Disclaimer: Shruthi Disclaimer: This electronic medical record was generated, in whole or in part, using a voice recognition dictation system. Departure Departure Impression: Primary Impression: Left flank pain Additional Impressions: Lung nodule Diverticulosis Kidney stone Disposition: HOME / SELF CARE / HOMELESS Condition: STABLE Referrals: LEONORA DHILLON MD (PCP) follow up in one week Patient Instructions: Diverticulosis, Flank Pain, [id number], Pulmonary Nodule, [id number] Additional Instructions: You were evaluated in the emergency room for left flank pain. Your CAT scan of the abdomen pelvis was noted for diverticulosis, nonobstructing right renal s tone, and left lower lobe lung nodule. This needs to be followed up with a primary care doctor. Your urine is negative for infection, your lab work is negative for any acute findings. Please follow-up with your primary care doctor next week Scripts Hydrocodone Bit/Acetaminophen (HYDROCODONE-APAP 5-325 ) 1 Tab Tablet 1 TAB PO PRN Q6HRS PRN for PAIN, #10 TAB 0 Refills Prov: MADIHA MATHIS APRN 04/24/21 Cyclobenzaprine Hcl (CYCLOBENZAPRINE HCL) 10 Mg Tablet 1 TAB PO TID, #30 TAB Prov: MADIHA MATHIS APRN 04/24/21 MADIHA MATHIS APRN Apr 24, 2021 19:40
[2021-04-24 19:45] VITALS: BP 143/76
== END 2021-04-24 19:54 | disposition home or self-care (01) ==
LOC: ER 16:45
DX: N20.0 Calculus of kidney (principal); K57.30 Diverticulosis of large intestine without perforation or abscess without bleeding; R91.1 Solitary pulmonary nodule; E11.9 Type 2 diabetes mellitus without complications; I10 Essential (primary) hypertension; F17.200 Nicotine dependence, unspecified, uncomplicated; Z87.442 Personal history of urinary calculi; Z90.49 Acquired absence of other specified parts of digestive tract; Z98.890 Other specified postprocedural states; Z90.710 Acquired absence of both cervix and uterus
CPT/HCPCS: 36415; 74176; 80053; 81001; 85025; 87086; 96361; 96374; 96375; 99284; J2405; J3010; J7030

== ENCOUNTER → 2021-06-30 | Outpatient (CLI) | payer MEDICAID ==
[~2021-06-30] MED LIST changes: +CYCL10TA19 PO; +IOHEXOL 180 MG/ML 10 ML VIAL. ONE; -LISI-517 PO; +LISI5TAB15 PO; +TIZA-75 PO; -TIZA4TAB2 PO; +methylPREDNISolone ACETATE 40 MG/ML VIAL. ONE; +methylPREDNISolone ACETATE 80 MG/ML VIAL. ONE
--- NOTE | 2021-06-30 08:37 | PDOC4 ---
Procedure Note: ICD 10 Code: ICD 10 Code: M5 4.17 M51.87 M4 8.06 Procedure Note: Patient was consented for lumbar epidural steroid injection with fluoroscopic guidance. Risks were discussed including but not limited to: Bleeding, infection, possibility of epidural hematoma and subsequent neurological compromise, dural puncture, headaches, spinal cord and/or nerve damage, side effects of steroid medication, and poor results regarding pain control. Patient understands and wished to proceed. Procedure is lumbar epidural steroid injection under local anesthetic using st erile prep and drape at the L5-S1 level using C-arm fluoroscopic guidance in both AP and lateral views medications injected is 120 mg Depo-Medrol +10mL preservative-free normal saline and 2 mL contrast- condition at discharge is stable patient tolerated procedure well had no complications. SAMY HUTCHINSON MD Jun 30, 2021 08:37
--- NOTE | 2021-06-30 08:37 | PDOC ---
Progress Note - Pain Clinic Date of Service: DOS: DATE: 06/30/21 TIME: 08:32 Diagnosis: Dx: Lumbar radiculopathy with lumbar degenerative disease lumbar postlaminectomy syndrome History or Present Illness: HPI: 50-year-old female returns for follow-up last seen January 2020. Patient did very well near 100% improvement for over a year patient reports about a week ago she was at home and tripped and fell over an ottoman landing on her left side causing significant pain low back and the left leg she went to emergency room and had some x-rays nothing was fractured however she has been doing stretching strength exercises the pain is persistent in the low back rating left lower extremity posterior gluteus posterior thigh posterior calf lateral thigh anterior thigh occasionally in the groin but mostly in the leg into the lower calf on the left side patient reports aching tight cramping constant rated a 5-6 on scale 10 is worst over the past week for an average for its least and is a 5 today patient reports worse with walking standing changing positions better with his sitting or lying down she is unable to sleep more than 4 to 5 hours at without awaking her. Patient reports no loss of motor function with significant fatigability of the left leg with ambulation. Patient did have some new plain films which she brought with her today showing some significant degenerative changes and stenosis at the L4-5 and L5-S1 levels as previously. Patient reports no loss of motor function no bowel or bladder incontinence Physical Exam: VS: Blood pressure is 159/98 pulse 83 respirations 18 temperature 98.1 F height 5 feet 6 inches weight is 220 pounds. PE: PHYSICAL EXAMINATION: GENERAL: The patient is awake, alert, oriented, appropriate, very pleasant in demeanor HEENT: Shows normocephalic, atraumatic. Extraocular movements are intact and symmetrical. Oral cavity: Mucous membranes moist and pink. Dentition is intact. NECK: Shows anterior throat supple without palpable lymphadenopathy noted. Swallow reflex symmetrical. CHEST: Shows normal on inspection. Breath sounds are clear bilaterally, no rales rhonchi wheezes auscultated. HEART: Shows S1, S2 clear. No murmurs auscultated. ABDOMEN: Soft, nontender, nondistended, obese. No palpable organomegaly is noted. BACK: Shows spine grossly in the midline. Normal-appearing cervical lordotic curvature. There is slightly increased thoracic kyphosis, some minor flattening of the lumbar lordotic curvature. Lumbar paraspinous muscles show symmetrical on inspection, on palpation shows some moderate tenderness diffusely throughout the upper, middle and lower distribution of the paraspinous muscles, but without specific trigger points, without radiation of pain. The patient has good rotational motion of the lumbar spine, both laterally as well as extension and flexion without significant difficulty. EXTREMITIES: Lower extremities show deep tendon reflexes 2+ in the patellar and tendo calcaneus tendons. Motor exam is 5 on a scale of 5 with right dors iflexion, extension, quadriceps and hamstring flexion and 4/5 on the left. Peripheral pulses are 1+ posterior tibial. No peripheral edema is noted bilaterally. Lower extremities are warm and dry to touch, equal in color and appearance. SKIN: Shows warm and dry, good turgor. No edema. No sores, rashes or bruising throughout. Procedure: Procedure: Options were discussed with the patient. Patient chart was reviewed as her current medication regimen updated current review of systems updated today as well. We will proceed with a lumbar epidural steroid injection today with fluoroscopic guidance. Risks were discussed including but not limited to: Bleeding, infection, possibility of epidural hematoma and subsequent neurolo gical compromise, dural puncture, headaches, spinal cord and/or nerve damage, side effects of steroid medication, and poor results regarding pain control. Patient understands and wished to proceed. Patient will return to the clinic in approximate 2 weeks for follow-up, was counseled return appointment, activity level, and side effects beware of. Medication Injected: Med Injected: Procedure is lumbar epidural steroid injection under local anesthetic using sterile prep and drape at the L5-S1 level using C-arm fluoroscopic guidance in both AP and lateral views medications injected is 120 mg Depo-Medrol +10mL preservative-free normal saline and 2 mL contrast- condition at discharge is stable patient tolerated procedure well had no complications. Condition at Discharge: Condition at Discharge: Condition at discharge is stable, patient tolerated the procedure well and had no complications. SAMY HUTCHINSON MD Jun 30, 2021 08:37
== END | disposition home or self-care (01) ==
LOC: PNCL 08:03
PROVIDERS: ATTEND Anesthesiology
DX: M51.16 Intervertebral disc disorders with radiculopathy, lumbar region (principal); M96.1 Postlaminectomy syndrome, not elsewhere classified; I10 Essential (primary) hypertension; E78.00 Pure hypercholesterolemia, unspecified; J45.909 Unspecified asthma, uncomplicated; G47.30 Sleep apnea, unspecified; E11.9 Type 2 diabetes mellitus without complications; F41.9 Anxiety disorder, unspecified; F32.9 Major depressive disorder, single episode, unspecified; F17.210 Nicotine dependence, cigarettes, uncomplicated; Z79.84 Long term (current) use of oral hypoglycemic drugs; Z90.49 Acquired absence of other specified parts of digestive tract; Z90.710 Acquired absence of both cervix and uterus; Z98.890 Other specified postprocedural states; Z98.51 Tubal ligation status; Z79.899 Other long term (current) drug therapy
CPT/HCPCS: 62323; J1030; J1040; Q9965

== ENCOUNTER → 2021-07-16 | Outpatient (CLI) | payer MEDICAID ==
[~2021-07-16] MED LIST changes: +DULA0.75 SQ; -IOHEXOL 180 MG/ML 10 ML VIAL. ONE; -methylPREDNISolone ACETATE 40 MG/ML VIAL. ONE; -methylPREDNISolone ACETATE 80 MG/ML VIAL. ONE
--- NOTE | 2021-07-16 08:41 | RAD ---
INDICATION : Routine Screening. COMPARISON: August 12, 2018 TECHNIQUE: Standard mammogram screening views of the bilateral breasts were obtained. CAD was utilize d. FINDINGS: The breasts are heterogenous density. No definite suspicious mass. IMPRESSION: BI-RADS Category 1: Negative. Recommend repeat screening exam in one year. The patient was placed into the recall system with a suggested recall date for follow up imaging. Mammography is the most sensitive method for finding small breast cancers, but it does not detect the m all and is not a substitute for careful clinical examination. A negative mammogram does not negate a clinically suspicious finding and should not result in delay in biopsying a clinically suspicious abnormality. Electronically signed by: Eliecer Hope MD (07/16/2021 8:39 AM) [id number]
== END ==
LOC: MAMMO 09:25
PROVIDERS: ATTEND Family Medicine
DX: Z12.31 Encounter for screening mammogram for malignant neoplasm of breast (principal)
CPT/HCPCS: 77067

== ENCOUNTER → 2021-07-21 | Outpatient (CLI) | payer MEDICAID ==
[2021-07-21 08:31] LABS: ALBUMIN 3.6 g/dL (3.4-5.0); CREATININE 0.5 mg/dL (0.6-1.0); GFR 130.1; TOTAL BILIRUBIN 0.3 mg/dL (0.2-1.0); TOTAL PROTEIN 7.2 g/dL (6.4-8.2)
[2021-07-22 01:10] LABS: HEMOGLOBIN A1C 8.1 % (4.8-5.6)
== END ==
LOC: LAB 07:29
PROVIDERS: ATTEND Family Medicine
DX: E11.65 Type 2 diabetes mellitus with hyperglycemia (principal)
CPT/HCPCS: 36415; 80053; 83036

== ENCOUNTER → 2021-07-30 | Outpatient (CLI) | payer MEDICAID ==
[~2021-07-30] MED LIST changes: +IOHEXOL 180 MG/ML 10 ML VIAL. ONE; +methylPREDNISolone ACETATE 40 MG/ML VIAL. ONE; +methylPREDNISolone ACETATE 80 MG/ML VIAL. ONE
--- NOTE | 2021-07-30 09:49 | PDOC ---
Progress Note - Pain Clinic Date of Service: DOS: DATE: 07/30/21 TIME: 09:46 Diagnosis: Dx: Lumbar radiculopathy with lumbar degenerative disease and lumbar spinal stenosis History or Present Illness: HPI: 50-year-old female returns for follow-up status post lumbar epidural steroid injection x1. Patient reports about 100% improvement for the first week to 2 weeks now down about 50% overall in the low back and left lower extremity patient reports in the low back posterior gluteus posterior thigh posterior calf mostly in the back that was her main complaint patient reports is a 4 on a scale of 10 is worse over the past week 2-3 on average to its least and is a 3 today patient was aching and tight burning shooting and radiating the left lower extremity worse with walking standing changing positions better with sitting or lying down. Patient reports it is "just uncomfortable" patient reports no bowel or bladder incontinence reports no loss of motor function with significant fatigability with standing and walking with the left lower extremity. Physical Exam: VS: Blood pressure is 134/93 pulse 96 respirations 18 temperature 98.6 F height is 5 feet 6 inches weight is 219 pounds. PE: PHYSICAL EXAMINATION: GENERAL: The patient is awake, alert, oriented, appropriate, very pleasant in demeanor HEENT: Shows normocephalic, atraumatic. Extraocular movements are intact and symmetrical. Oral cavity: Mucous membranes moist and pink. Dentition is intact. NECK: Shows anterior throat supple without palpable lymphadenopathy noted. Swallow reflex symmetrical. CHEST: Shows normal on inspection. Breath sounds are clear bilaterally, distant but no rales or rhonchi. HEART: Shows S1, S2 clear. No murmurs auscultated. ABDOMEN: Soft, nontender, nondistended, obese. No palpable organomegaly is noted. BACK: Shows spine grossly in the midline. Normal-appearing cervical lordotic curvature. There is some increased thoracic kyphosis, some flattening of the lumbar lordotic curvature. Lumbar paraspinous muscles show symmetrical on inspection, on palpation shows some moderate tenderness diffusely throughout the upper, middle and lower distribution of the paraspinous muscles, but without specific trigger points, without radiation of pain. The patient has good rotational motion of the lumbar spine, both laterally as well as extension and flexion without significant difficulty. No tenderness over the spinous processes, sacrum or sacroiliac regions. EXTREMITIES: Lower extremities show deep tendon reflexes 2+ in the patellar and tendo calcaneus tendons. Motor exam is 5 on a scale of 5 with right dorsiflexion, extension, quadriceps and hamstring flexion and 4/5 on the left. Peripheral pulses are 1+ posterior tibial. No peripheral edema is noted bilat erally. Lower extremities are warm and dry. SKIN: Shows warm and dry, good turgor. No edema. No sores, rashes or bruising throughout. Procedure: Procedure: Options were discussed with patient. Patient chart was used with her current medication regimen updated current review of systems updated today as well. We will proceed with a lumbar epidural steroid injection today with fluoroscopic guidance. Risks were discussed including but not limited to: Bleeding, infection, possibility of epidural hematoma and subsequent neurological compromise, dural puncture, headaches, spinal cord and/or nerve damage, side effects of steroid medication, and poor results regarding pain control. Patient understands and wished to proceed. Patient will return to the clinic in approximate 2 weeks for follow-up, was counseled return appointment, activity level, and side effect to be aware of. Medication Injected: Med Injected: Procedure is lumbar epidural steroid injection under local anesthetic using sterile prep and drape at the L5-S1 level using C-arm fluoroscopic guidance in both AP and lateral views medications injected is 120 mg Depo-Medrol +10mL preservative-free normal saline and 2 mL contrast- condition at discharge is stable patient tolerated procedure well had no complications. Condition at Discharge: Condition at Discharge: Condition at discharge stable, patient tolerated the procedure well and had no complications. SAMY HUTCHINSON MD Jul 30, 2021 09:49
--- NOTE | 2021-07-30 09:50 | PDOC4 ---
Procedure Note: ICD 10 Code: ICD 10 Code: M54.17 M5 1.87 M4 8.07 Procedure Note: Patient was consented for lumbar epidural steroid injection with fluoroscopic guidance risks were discussed including but not limited to: Bleeding, infection, possibility of epidural hematoma and subsequent neurological compromise, dural puncture, headaches, spinal cord and/or nerve damage, side effects of steroid medication, and poor results regarding pain control. Patient understands and wished to proceed. Procedure is lumbar epidural steroid injection under local anesthetic using ster ile prep and drape at the L5-S1 level using C-arm fluoroscopic guidance in both AP and lateral views medications injected is 120 mg Depo-Medrol +10mL preservative-free normal saline and 2 mL contrast- condition at discharge is stable patient tolerated procedure well had no complications. SAMY HUTCHINSON MD Jul 30, 2021 09:50
== END | disposition home or self-care (01) ==
LOC: PNCL 08:53
PROVIDERS: ATTEND Anesthesiology
DX: M51.16 Intervertebral disc disorders with radiculopathy, lumbar region (principal); M48.061 Spinal stenosis, lumbar region without neurogenic claudication; I10 Essential (primary) hypertension; E78.00 Pure hypercholesterolemia, unspecified; E11.9 Type 2 diabetes mellitus without complications; G47.30 Sleep apnea, unspecified; J45.909 Unspecified asthma, uncomplicated; F41.9 Anxiety disorder, unspecified; F32.9 Major depressive disorder, single episode, unspecified; F17.210 Nicotine dependence, cigarettes, uncomplicated; Z90.49 Acquired absence of other specified parts of digestive tract; Z98.51 Tubal ligation status; Z90.710 Acquired absence of both cervix and uterus; Z98.890 Other specified postprocedural states; Z79.84 Long term (current) use of oral hypoglycemic drugs; Z79.899 Other long term (current) drug therapy
CPT/HCPCS: 62323; J1030; J1040; Q9965

== ENCOUNTER → 2021-11-13 | Outpatient (CLI) | payer MEDICAID ==
[~2021-11-13] MED LIST changes: +CEPH500T PO; +CHLO118L3 TP; +GABA300C18 PO; +IBUP-1060 PO; -IOHEXOL 180 MG/ML 10 ML VIAL. ONE; +LOSA-362 PO; -LOSA25TA4 PO; +SITA100T PO; -methylPREDNISolone ACETATE 40 MG/ML VIAL. ONE; -methylPREDNISolone ACETATE 80 MG/ML VIAL. ONE
[2021-11-13 13:20] LABS: BASO # 0.1 x10^3/uL (0.0-0.2); BASO % 1 % (0-3); EOS # 0.3 x10^3/uL (0.0-0.7); EOS % 4 % (0-3); HEMATOCRIT 34.9 % (36.0-47.0); HEMOGLOBIN 11.2 g/dL (12.0-15.5); LYMPH # 2.9 x10^3/uL (1.0-4.8); LYMPH % 47 % (24-48); MEAN CORPUSCULAR HEMOGLOBIN 24 pg (25-35); MEAN CORPUSCULAR HGB CONC 32 g/dL (31-37); MEAN CORPUSCULAR VOLUME 76 fL (79-100); MONO # 0.5 x10^3/uL (0.0-1.1); MONO % 9 % (0-9); NEUT # 2.5 x10^3/uL (1.8-7.7); NEUT % 40 % (31-73); PLATELET COUNT 302 x10^3/uL (140-400); RED BLOOD COUNT 4.59 x10^6/uL (3.50-5.40); RED CELL DISTRIBUTION WIDTH 14.6 % (11.5-14.5); WHITE BLOOD COUNT 6.2 x10^3/uL (4.0-11.0)
--- NOTE | 2021-11-13 13:22 | EKG ---
[facility] [address] [place] [address] Test Date: 2021-11-13 Test Time: 13:20:52 Pat Name: LORRIE BUNN Department: Room: Gender: F Home Health Manager: AUBRIE : 1970 Requested By: FELICE CAMACHO Order Number: [id number] Reading MD: Jayden Sheehan Measurements Intervals Curtice Rate: 68 P: 0 MI: 168 QRS: 14 QRSD: 100 T: 6 QT: 412 QTc: 443 Interpretive Statements SINUS RHYTHM Electronically Signed On 11-15-2021 18:25:07 [employer]ILINGUAL TEACHER ASSISTANT by Jayden Sheehan
[2021-11-13 13:29] LABS: PROTHROMBIN TIME PATIENT 12.6 SEC (11.7-14.0)
[2021-11-13 13:31] LABS: CALCIUM 9.1 mg/dL (8.5-10.1); CREATININE 0.6 mg/dL (0.6-1.0); POTASSIUM 3.9 mmol/L (3.5-5.1)
[2021-11-14 00:12] LABS: HEMOGLOBIN A1C 8.1 % (4.8-5.6)
--- NOTE | 2021-11-14 10:20 | NUR ---
Faxed pretesting results to Dr Isaacs's office.
== END ==
LOC: SURGPAT 12:31
PROVIDERS: ATTEND Plastic Surgery
DX: I10 Essential (primary) hypertension (principal); N62 Hypertrophy of breast; M95.4 Acquired deformity of chest and rib; N64.4 Mastodynia; M54.2 Cervicalgia; R29.3 Abnormal posture; Z01.818 Encounter for other preprocedural examination
CPT/HCPCS: 36415; 80048; 83036; 85025; 85610; 85730; 93005

== ENCOUNTER 2021-11-17 07:05 | Observation (INO) | payer MEDICAID ==
[2021-11-13 13:10] VITALS: BP 117/71
[~2021-11-17] VITALS: Ht 167.6 cm; Wt 100.0 kg
[~2021-11-17 07:05] MED LIST changes: -CEPH500T PO; -CHLO118L3 TP; -GABA300C18 PO; -IBUP-1060 PO; +IV RINGERS,LACTATED 1000ML 1,000 ML IV SCH; +LIDOCAINE 1% PF 5 ML VIAL. ONE; +PROCHLORPERAZINE 10 MG/2 ML VIAL. IVP PRN; +PROPOFOL 10 MG/ML (20ML) VIAL. IV ONE; +ROCURONIUM 100 MG/10 ML VIAL. ONE; +fentaNYL PF VIAL 100 MCG/2 ML VIAL IVP PRN; +fentaNYL PF VIAL 250 MCG/5 ML VIAL ONE
[2021-11-17] MEDS ORDERED: SCOPOLAMINE 1.5MG PATCH. TD ONE (07:30)
[2021-11-17] MEDS ORDERED: EPINEPHrine 1 MG/ML VIAL ONE (07:43)
[2021-11-17] MEDS ORDERED: ceFAZolin SODIUM 3 GM in IV DEXTROSE 5% 100ML 100 ML IV PRN ×2 (08:00→12:30)
[2021-11-17] MEDS: INSULIN LISPRO 100 UNIT/ML 3ML VIAL for OP,RR ONLY. SQ PRN ×3 (08:30→15:06)
[2021-11-17] MEDS ORDERED: GLYCOPYRROLATE 1 MG/5 ML VIAL. ONE (08:52)
[2021-11-17] MEDS ORDERED: NEOSTIGMINE METHYLSULFATE 5 MG/5 ML SYRINGE. ONE (09:45)
[2021-11-17] MEDS ORDERED: MUPIROCIN 2 % OINTMENT 22GM TUBE. ONE (09:53)
[2021-11-17] MEDS ORDERED: BACITRACIN TOPICAL OINT PACKET. TP ONE (12:34)
[2021-11-17] MEDS ORDERED: DEXAMETHASONE SOD PHOS 4 MG/ML VIAL ONE (12:34)
[2021-11-17] MEDS ORDERED: ONDANSETRON PF 4 MG/2 ML VIAL. ONE (12:34)
[2021-11-17] MEDS ORDERED: BUPIVACAINE-EPI 0.25%-1:200000 MPF 30 ML VIAL. ONE (12:49)
[2021-11-17] MEDS ORDERED: fentaNYL PF VIAL 100 MCG/2 ML VIAL ONE (12:53)
[2021-11-17] MEDS ORDERED: MORPHINE SULFATE 2 MG/ML INJ. ONE (13:33)
[2021-11-17] MEDS: MORPHINE SULFATE 2 MG/ML INJ. IVP PRN ×2 (13:40→13:50)
[2021-11-17] MEDS ORDERED: HYDROmorphone 2 MG/ML INJ. ONE ×2 (13:50→16:33)
[2021-11-17] MEDS ORDERED: CEPH500T PO (13:50)
[2021-11-17] MEDS ORDERED: GABA300C18 PO (13:50)
[2021-11-17] MEDS ORDERED: HYDR-2761 PO (13:50)
[2021-11-17] MEDS ORDERED: CHLO118L3 TP (13:50)
[2021-11-17] MEDS ORDERED: IBUP-1060 PO (13:50)
[2021-11-17] MEDS: HYDROmorphone 2 MG/ML INJ. IVP PRN ×5 (13:52→16:36)
--- NOTE | 2021-11-17 13:52 | PDOC4 ---
OPERATIVE NOTE Date: Date: Nov 17, 2021 Pre-Op Diagnosis: Macromastia Post-Op Diagnosis: Same Procedure Performed: Bilateral breast reduction, CPT 36140-18 Surgeon: Steph Camacho MD Anesthesia Type: General Blood Loss: 100mL Specimans Obtained: Bilateral breast tissue Findings: See op note Complications: None Operative Note: Clinical Findings: This is a 51yo female who presents with symptomatic macromastia. She has been seen and evaluated in the office and found to be a good candidate for reduction mammaplasty. The procedure and the risks have been described in detail. She understands and wishes to proceed. Description of Procedure: Informed consent was obtained in the perioperative holding area. The patient was marked and photographed in the photography room. The sternal midline, breast meridian, inframammary folds were marked bilaterally. The new positions of the nipple areolar complexes were marked and correlated to the level of the inframammary fold along the breast meridian. An vertical skin pattern was delineated. A superomedial pedicle was planned. The patient was then transported to the operating room and placed on the table in the supine position. A surgical timeout was performed verifying the correct patient and the correct procedure. Sequential compression devices were applied to both lower extremities and were functioning prior to the induction of anesthesia. Three grams of IV Ancef were administered. General endotracheal anesthesia was initiated. A cortes catheter was placed. The chest was prepped with Chloraprep and draped in the usual sterile fashion. For each side the procedure proceeded as follows: The markings were redelineated. Bilateral P1 and P2 pectoralis nerve blocks were performed with 30mL diluted 0.25% Marcaine. Each breast was then injected with 100 mL of tumescent solution along the planned incision lines and path of dissection. The nipple areolar complexes were inscribed with a 42 mm areolar marker. A #15 scalpel was used to incise around the epidermis of the nipple areolar complex. The skin of the superomedial pedicle outside of the nipple was de- epithelialized. The pedicle was then dissected to a depth of 2.5 cm with electrocautery. Attention was then turned to creating the flaps. 2 cm thick flaps were created laterally, and inferiorly with excess breast tissue excised, weighed, and sent to pathology. Hemostasis was achieved with electrocautery. The skin was temporarily closed with benigno and the patient sat up to approximately 75. The contour, volume, and symmetry were assessed. The patient was returned to the supine position and further contouring was performed to achieve symmetry. This pattern of contouring and repositioning was continued until the desired symmetry was attained. Once the contour was found to be satisfactory the patient was returned to the supine position. Hemostasis was achieved with cautery. The inframammary incisions were closed with 2-0 Quill in the deep subcutaneous tissue and 4-0 Monocryl as a subcuticular stitch. The nipple areolar complex dermis was sutured with 3-0 and 40 PDS while the skin was closed with 4-0 Monocryl. The nipples were blanching at the end of the procedure. Steri-Strips were applied over the incisions and Bacitracin impregnated Xeroform gauze was applied over the nipples followed by fluffed gauze. The surgical bra was then applied. The patient tolerated the procedure well without immediate intraoperative complications and was transferred to the PACU in stable condition.. Needle and sponge count were correct. STEPH CAMACHO MD Nov 17, 2021 13:52
[2021-11-17] MEDS ORDERED: HYDROcodone/APAP 5/325MG 1 TAB TABLET PO ONE (14:45)
[2021-11-17] MEDS ORDERED: INSULIN LISPRO 100 UNIT/ML 3ML VIAL for OP,RR ONLY. SQ ONE ×3 (15:10)
[2021-11-17] MEDS ORDERED: 0.9 % SODIUM CHLORIDE 10 ML DISP.SYRIN. IV PRN (15:30)
[2021-11-17] MEDS ORDERED: NALOXONE 0.4 MG/ML VIAL. IV PRN (15:30)
[2021-11-17] MEDS ORDERED: HYDROmorphone 2 MG/ML INJ. IV PRN (15:30)
[2021-11-17] MEDS ORDERED: ONDANSETRON PF 4 MG/2 ML VIAL. IVP PRN (15:30)
[2021-11-17] MEDS ORDERED: ZOLPIDEM 5 MG TABLET. PO PRN (15:30)
[2021-11-17] MEDS ORDERED: PROCHLORPERAZINE 10 MG/2 ML VIAL. IV PRN (15:30)
[2021-11-17] MEDS: GABAPENTIN 300 MG CAPSULE. PO SCH ×2 (18:47→22:22)
[2021-11-17] MEDS: HYDROcodone/APAP 5/325MG 1 TAB TABLET PO PRN ×2 (18:48→23:22)
[2021-11-17 19:00] VITALS: BP 114/67
[2021-11-17] MEDS: IBUPROFEN 400 MG TABLET. PO PRN (19:43)
[2021-11-17] MEDS: DOCUSATE SODIUM 100 MG CAPSULE. PO SCH (19:43)
[2021-11-17] MEDS: FAMOTIDINE 20 MG TABLET. PO SCH (19:43)
[2021-11-17 23:00] VITALS: BP 112/76
[2021-11-18 03:00] VITALS: BP 119/76
[2021-11-18] MEDS: HYDROcodone/APAP 5/325MG 1 TAB TABLET PO PRN ×2 (03:57→08:01)
[2021-11-18] MEDS: GABAPENTIN 300 MG CAPSULE. PO SCH (06:09)
[2021-11-18 07:15] VITALS: BP 135/87
[2021-11-18] MEDS ORDERED: ENOXAPARIN 40 MG/0.4 ML SYRINGE. SQ SCH (08:00)
[2021-11-18] MEDS: DOCUSATE SODIUM 100 MG CAPSULE. PO SCH (08:01)
[2021-11-18] MEDS: FAMOTIDINE 20 MG TABLET. PO SCH (08:01)
[2021-11-18] MEDS: IBUPROFEN 400 MG TABLET. PO PRN (10:29)
--- NOTE | 2021-11-18 10:36 | PDOC ---
Provider Note Date of Service: DATE: 11/18/21 TIME: 10:33 Provider Note S: Patient examined at the bedside. Upset with overnight nursing care and lack of communication regarding medications. Pain is controlled with medication. Ambulating well. Tolerating diabetic diet without nausea or vomiting. O: Afebrile. Hypoglycemia Physical exam General: No acute distress Breasts: Bilateral breasts without signs of hematoma or fluid collection. Nipples intact and blanching. A/P: 51-year-old female postop day 1 status post bilateral breast reduction. Discussed with patient the importance of glucose control during this time. Discussed again the complication of wound healing issues at the T-junction and possible nipple loss. Patient understood and states that she will resume her home medications when she returns home. She will follow up in 1 week for postoperative assessment. Steph Camacho MD Justifications for Admission Other Justification STEPH CAMACHO MD Nov 18, 2021 10:36
[2021-11-18 11:03] VITALS: BP 138/81
[2021-11-18] MEDS ORDERED: IV DEXTROSE 5% 250 ML BAG. IV PRN (11:45)
[2021-11-18] MEDS ORDERED: DEXTROSE 50% 25 GM / 50ML DISP.SYRIN. IV PRN (11:45)
[2021-11-18] MEDS ORDERED: INSULIN LISPRO 300 UNITS/3 ML VIAL. SQ SCH (12:00)
--- NOTE | 2021-11-18 12:44 | NUR ---
Pt taken by wheelchair accompanied by RN and family member to outpatient entrance where she was helped into her vehicle
--- NOTE | 2021-11-18 13:35 | NUR ---
SW following. Chart reviewed, discharge order for home with self care. No SW needs identified.
--- NOTE | 2021-11-18 16:09 | PATHOLOGY ---
[facility] Accession Number: [id number] . 01 Material submitted: . PART A: breast - RIGHT BREAST TISSUE. Modifiers: right PART B: breast - LEFT BREAST TISSUE. Modifiers: left . 01 Clinical history: . HYPERTROPHY OF BREAST BILATERAL BREAST REDUCTION . 02 Diagnosis: A. Segments of skin and breast tissue, right breast reduction: - Mammary hypertrophy (weight 906 grams). - Stromal fibrosis and mild duct ectasia, focal. . B. Segments of skin and breast tissue, left breast reduction: - Mammary hypertrophy (weight 949 grams). - Stromal fibrosis and mild duct ectasia, focal. (JPM/db; 11/18/2021) LBQ 11/18/2021 1418 Local . 02 Electronically signed: . Charli Welch MD, Pathologist NPI- [id number] . 01 Gross description: . A. Fixative: Formalin Labeled: Right breast tissue Weight: 906 g post fixation Dimensions: 29.0 x 24.5 x 4.9 cm in aggregate Skin: Marquez, wrinkled and unremarkable Cut surface: fatty and homogenous with 5% fibrous tissue Lesions/abnormalities: None Cold ischemic time: Not provided Total time in formalin: approximately greater than 6 and less than 72 hours A1-A2: [employer] sections with skin in A1 . B. Fixative: Formalin Labeled: left breast tissue Weight: 949 g post fixation Dimensions: 23.5 x 23.0 x 5.3 cm in aggregate Skin: Marquez, smooth and unremarkable Cut surface: Fatty and homogenous with 5% fibrous tissue Lesions/abnormalities: None Cold ischemic time: Not provided Total time in formalin: Approximately greater than 6 and less than 72 hours B1-B2: [employer] sections with skin in B1 ([facility] [place]; 11/17/2021) DKA/DKA 11/17/2021 1640 Local . 02 Pathologist provided ICD-10: N62, N60.31, N60.41, N60.32, N60.42 . 02 CPT . 635382, [id number] Specimen Comment: A courtesy copy of this report has been sent to [phone] Specimen Comment: Report sent to Performed at: [address] [facility] [address], [place] [id number] MD Braulio Nicole MD Phone: [phone] Performed at: 02 [facility] [place] [address] [place], [place] [id number] MD Charli Welch MD Phone: [phone]
[2021-11-27] MEDS ORDERED: HYDR-2761 PO (16:59)
== END 2021-11-18 12:25 | disposition home or self-care (01) ==
LOC: SURG 07:05 → 4 NORTH 15:21
PROVIDERS: ADMIT Plastic Surgery; ATTEND Plastic Surgery
DX: N62 Hypertrophy of breast (principal); Z20.822 Contact with and (suspected) exposure to COVID-19; I10 Essential (primary) hypertension; E78.00 Pure hypercholesterolemia, unspecified; G47.30 Sleep apnea, unspecified; G56.03 Carpal tunnel syndrome, bilateral upper limbs; F17.200 Nicotine dependence, unspecified, uncomplicated; F41.9 Anxiety disorder, unspecified; F32.9 Major depressive disorder, single episode, unspecified; Z79.899 Other long term (current) drug therapy; Z98.890 Other specified postprocedural states; Z87.442 Personal history of urinary calculi; Z98.51 Tubal ligation status; Z98.891 History of uterine scar from previous surgery; Z90.710 Acquired absence of both cervix and uterus
CPT/HCPCS: 19318; 82962; 88305; 95811; 96365; 96372; 96375; 96376; A4209; A4213; A4314; A4930; A6223; A6253; A6254; A6258; A6403; G0378; G0379; J0171; J0690; J1100; J1170; J1650; J1815; J2270; J2405; J2704; J2710; J3010; J3490; A4452; A6443

== ENCOUNTER → 2021-12-31 | Outpatient (CLI) | payer MEDICAID ==
[~2021-12-31] MED LIST changes: +CEPH500T PO; +CHLO118L3 TP; +GABA300C18 PO; +IBUP-1060 PO; -IV RINGERS,LACTATED 1000ML 1,000 ML IV SCH; -LIDOCAINE 1% PF 5 ML VIAL. ONE; -PROCHLORPERAZINE 10 MG/2 ML VIAL. IVP PRN; -PROPOFOL 10 MG/ML (20ML) VIAL. IV ONE; -ROCURONIUM 100 MG/10 ML VIAL. ONE; -fentaNYL PF VIAL 100 MCG/2 ML VIAL IVP PRN; -fentaNYL PF VIAL 250 MCG/5 ML VIAL ONE
[2021-12-31 08:27] LABS: ALBUMIN 3.8 g/dL (3.4-5.0); ALBUMIN/GLOBULIN RATIO 0.9 (1.0-1.7); CALCIUM 9.2 mg/dL (8.5-10.1); CREATININE 0.6 mg/dL (0.6-1.0); POTASSIUM 4.2 mmol/L (3.5-5.1); TOTAL BILIRUBIN 0.3 mg/dL (0.2-1.0)
[2022-01-01 01:09] LABS: HEMOGLOBIN A1C 8.2 % (4.8-5.6)
== END ==
LOC: LAB 07:27
PROVIDERS: ATTEND Family Medicine
DX: E11.65 Type 2 diabetes mellitus with hyperglycemia (principal)
CPT/HCPCS: 36415; 80053; 83036